=== PATIENT | male | born 1960 | race Caucasian/White ===

== ENCOUNTER 2020-04-23 18:08 | Emergency (ER) | payer MEDICAID, SELFPAY ==
[2020-04-23 18:09] VITALS: BP 152/102; PULSE 88; RESP 16; TEMP 36.4; O2SAT 100; BMI 19.4
--- NOTE | 2020-04-23 18:52 | ED.VIS.GEN ---
History of Present Illness Chief Complaint: Upper Extremity Injury Informant: Patient Narrative: Patient states that about a week and a half ago he was exposed to very cold temperatures. He tells me that for years when he goes out in the cold his fingers hurt. He states they typically will crack. This occurred during the last cold spell and the patient states that over the subsequent days the tips of his fingers particularly the right middle finger right ring and right index finger have started to turn black. He does not feel any sensation in the areas that are black. He notes that the right middle finger is swollen compared to the other fingers. He states his tetanus is up-to-date. He went to urgent care and they advised him to come to emergency. He is a long-term smoker. He states he is never been diagnosed with Raynaud's phenomenon. He denies that his fingers turn white or blue in the cold. Past Medical History - Allergies and Home Meds Allergies/Adverse Reactions: Allergies No Known Allergies Allergy (Verified 04/23/20 18:11) Prior records reviewed: Yes Surgical History: noncontributory Smoking Status: Current every day smoker Drugs: None Review of Systems General: Denies: Chills, Fever, Sweats Eyes: Denies: Visual changes - bilaterally, Diplopia ENT: Denies: Rhinorrhea, Sore throat Cardiovascular: Denies: Chest pain, Palpitations Respiratory: Denies: Dyspnea, Cough, Dyspnea on exertion Gastrointestinal: Denies: Abdominal pain, Nausea, Vomiting, Diarrhea, Melena, Hematochezia Genitourinary: Denies: Dysuria, Hematuria, Frequency Musculoskeletal: Reports: Swelling, Extremity Pain. Denies: Back pain Skin: Denies: Rash, Wounds Neurological: Denies: Headache, Weakness, Numbness Physical Exam Vital Signs/Narrative: Vital Signs Temp Pulse Resp BP Pulse Ox 04/23/20 18:09 97.5 F L 88 16 152/102 H 100 Inital Vital Signs reviewed: Yes General: Well nourished, Well developed, No Acute Distress Head: Normocephalic, Atraumatic Eyes: Perrl, EOMI ENT: Moist mucous membranes, No rhinorrhea Neck: Supple, Nontender Cardiovascular: Regular rate, Regular rhythm, No murmurs Respiratory: No distress, CTA bilaterally, Chest nontender Abdomen: Soft, Nontender, Nondistended, Normal bowel sounds Back: Nontender, Normal Inspection Extremities: Nontender, No edema, - - There are some black spots on the tips of the right ring finger and right index finger. Those digits are not swollen. Skin: No rash, - - The distal tip of the right middle finger is black and woody. There is no sensation. The length of the right middle finger is swollen but without erythema. He has flexion/extension. I do not feel it is tenosynovitis. Neurological: Alert, Oriented x3, Cranial nerves II-XII grossly intact, Normal Strength, Normal Sensation Psychological: Normal affect, Normal Mood Diagnostic/Tx/Re-eval - Medical Decision Making My interpretation of the three-view plain films of the right hand are negative for acute bony abnormalities. I am going to refer the patient to plastic surgery for possible surgical debridement. Given that the right middle finger is swollen and tender I will place him on Keflex. At this point I do not believe he has a tenosynovitis. Patient is comfortable with this plan. ED Disposition - Plan for ED Patient: Disposition: Home or Assisted Living Diagnosis: Frostbite of hand, right Instructions: ED Frostbite Prescriptions: Cephalexin [Keflex] 500 mg PO Q6 #40 cap Prescription Printed Referrals: Nash Lauren MD [STAFF PHYSICIAN] - As soon as possible Clinic,Wound [None] - As soon as possible
--- NOTE | 2020-04-23 18:55 | RAD_ITS ---
STUDY: X-RAY - RIGHT HAND REASON FOR EXAM: Male, 59 years old. PT STATES HAS HAD 3RD, 4TH, AND 5TH FINGERS CRACKED IN THE COLD WEATHER. NOW THEY ARE TURNING BLACK. BEEN GOING ON FOR 2 WEEKS. TECHNIQUE: 3 view(s) of the hand. COMPARISON: None. FINDINGS: Normal radiocarpal articulation. Normal distal radioulnar joint. Normal visualized carpal bones. Normal carpal articulations Normal carpometacarpal articulation of the thumb. Normal second through fifth carpometacarpal joints. Old healed fracture of the fifth metacarpal. Normal metacarpophalangeal joint of the thumb. Normal interphalangeal joint of the thumb. Normal proximal and distal phalanges of the thumb. Normal metacarpophalangeal joints of the second through fifth fingers. Normal proximal and distal interphalangeal joints of the second through fifth fingers. Normal phalanges of the second through fifth fingers. The soft tissue structures are unremarkable. RAD/Hand Min 3 Views IMPRESSION: Old healed fracture of the fifth metacarpal. No acute fracture or other significant bony pathology Electronically Signed: Keyshawn Tapia MD at 19:20 EST , Service support ,
== END 2020-04-23 19:48 | disposition home or self-care (01) ==
PROVIDERS: Emergency Provider Emergency Medicine; PCP Family Medicine
DX: T33.531A Superficial frostbite of right finger(s), initial encounter (principal); F17.200 Nicotine dependence, unspecified, uncomplicated
CPT/HCPCS: 73130; 99282

== ENCOUNTER 2020-12-16 15:42 | Emergency (ER) | payer MEDICAID, SELFPAY ==
[2020-04-26 10:08] VITALS: BMI 19.5
[2020-12-16 15:43] VITALS: BP 140/109; PULSE 113; RESP 15; TEMP 36.3; O2SAT 96; BMI 21.6
--- NOTE | 2020-12-16 15:46 | NURSING ---
NO OLD EKGS
--- NOTE | 2020-12-16 15:51 | EKG12_ITS ---
Test Reason : CP Blood Pressure : / mmHG Vent. Rate : 111 BPM Atrial Rate : 111 BPM P-R Int : 130 ms QRS Dur : 098 ms QT Int : 344 ms P-R-T Axes : 088 -42 112 degrees QTc Int : 467 ms Sinus tachycardia with occasional Premature ventricular complexes Left axis deviation Left ventricular hypertrophy with repolarization abnormality Abnormal ECG Confirmed by ALETHEA NORIEGA, UZIEL ([id number]), editor publications MARCUS GUO ([id number]) on 12/19/2020 1:57:48 PM Referred By: CRISSY/ALIYA Confirmed By:JOEY CLAIRE MD
--- NOTE | 2020-12-16 15:56 | RAD_ITS ---
INDICATION: chest pain EXAMINATION/TECHNIQUE: X-RAY - XR Chest 1 View COMPARISON: None. FINDINGS: 7 mm nodular density in the left mid to lower lung could represent a nipple shadow. Tortuous and calcified thoracic aorta. The heart is mildly enlarged. No pleural effusion or pneumothorax. No acute osseous abnormalities. RAD/Chest 1 View (Portable) IMPRESSION: 7 mm nodular density in the left mid to lower lung could represent a nipple shadow. Recommend repeat radiographs with nipple markers. Otherwise, no acute abnormalities. Electronically Signed: Alexander Anthony MD at 16:28 EDT Tel , Service support ,
--- NOTE | 2020-12-16 15:58 | CT_ITS ---
EXAM: CT ANGIOGRAPHY CHEST WITH INTRAVENOUS CONTRAST CLINICAL INDICATION: Chest pain TECHNIQUE: Helically acquired angiography images were obtained of the chest with intravenous contrast. This CT exam was performed using one or more of the following dose reduction techniques: automated exposure control, adjustment of the mA and/or kV according to patient size, and/or use of iterative reconstruction technique. VetDC report generation technology utilized. MIP reconstructed images were created and reviewed. CONTRAST: IV 100mL Isovue-370 COMPARISON: None. FINDINGS: PULMONARY ARTERIES: Unremarkable. Normal in caliber. No gross evidence of pulmonary embolism. AORTA: Unremarkable. Normal in caliber. No evidence of dissection. GREAT VESSELS OF AORTIC ARCH: Unremarkable. Normal in caliber. No evidence of dissection. LUNGS AND PLEURAL SPACES: Spiculated 2.2 cm mass of the right apex. The appearance suggest malignancy. Hyperexpansion of the lungs consistent with COPD. Bilateral blebs and bulla in both apices. Moderate right pleural effusion. Small left pleural effusion. Prominent compressive atelectasis of both lower lobes. . No pneumothorax. HEART: Moderate to marked cardiomegaly. 3.3 cm filling defect at the apex of the left ventricle, suspicious for intraluminal thrombus. Echocardiogram recommended. No pericardial effusion. No signs of right heart strain. MEDIASTINUM: Unremarkable. Although no gross mediastinal or hilar mass or adenopathy is seen, adenopathy is not completely excluded. Esophagus is unremarkable. No hiatal hernia. THYROID: Unremarkable. No thyroid lesions. BONES/JOINTS: Degenerative changes throughout the skeletal structures. No suspicious lytic or blastic abnormality. IMPRESSION: 1. No evidence for aortic aneurysm or dissection. 2. Bilateral pleural effusions especially on the right. 3. Suspicion of malignant-appearing mass in the right apex. Recommend further evaluation such as PET scan. 4. Moderate to marked cardiomegaly with filling defect in the left ventricle, possible thrombus. Echocardiogram recommended. 5. Underlying COPD. Electronically Signed: Twin Hernandez MD at 17:55 EDT , Service support , EXAM: CT ANGIOGRAPHY ABDOMEN AND PELVIS WITH INTRAVENOUS CONTRAST CLINICAL INDICATION: Chest pain TECHNIQUE: Helically acquired angiography images were obtained of the abdomen and pelvis with intravenous contrast. This CT exam was performed using one or more of the following dose reduction techniques: automated exposure control, adjustment of the mA and/or kV according to patient size, and/or use of iterative reconstruction technique. VetDC report generation technology utilized. MIP reconstructed images were created and reviewed. CONTRAST: IV 100mL Isovue-370 COMPARISON: None. FINDINGS: LIMITATIONS: Markedly limited by very limited intrinsic contrast probably related to generalized edema, along with the arterial phase of imaging. This makes it extremely difficult to differentiate abdominal structures. VASCULATURE: AORTA: Tortuous calcified aorta with no aneurysm or evidence for dissection. CELIAC TRUNK AND MESENTERIC ARTERIES: No acute findings. No occlusion or significant stenosis. No dissection. RENAL ARTERIES: No acute findings. No occlusion or significant stenosis. No dissection. ILIAC ARTERIES: No acute findings. No occlusion or significant stenosis. No dissection. ABDOMEN: LIVER: Unremarkable. Homogeneous. No focal mass. GALLBLADDER AND BILE DUCTS: Unremarkable. No calcified gallstones. No gallbladder distention or wall edema. No intra- or extrahepatic biliary ductal dilation. PANCREAS: Unremarkable. No focal cystic or solid mass. SPLEEN: Unremarkable. Normal size without focal cystic or solid mass. ADRENALS: Unremarkable. No nodules. KIDNEYS AND URETERS: Abnormal appearance of both kidneys with numerous segments of abnormal, absent enhancement. Appearance suggests numerous, possibly chronic, renal infarcts. No hydronephrosis. No definite stones. Probable diffuse edema and moderate ascites in all quadrants of the abdomen and pelvis. Normal renal size and position. STOMACH AND BOWEL: Evaluation of the GI tract is limited by absence of oral contrast. Cannot exclude stomach wall thickening. No dilated loops of bowel or evidence for obstruction. Cannot exclude segmental thickening of the patel of the small or large bowel. Cannot exclude enteritis or colitis. Moderate diffuse fecal retention. PELVIS: APPENDIX: Appendix within normal limits. BLADDER: Unremarkable. REPRODUCTIVE: Unremarkable as visualized. No mass. ABDOMEN and PELVIS: INTRAPERITONEAL SPACE: Mild diffuse ascites and generalized edema. BONES/JOINTS: Degenerative changes throughout the skeletal structures. There is dextroconvex scoliosis of the thoracolumbar spine. No suspicious lytic or blastic abnormality. SOFT TISSUES: See above. LYMPH NODES: Unremarkable. No enlarged lymph nodes. CT/CTA Chst, Abd, Pel W and/or WO IMPRESSION: 1. Tortuous calcified aorta with no aneurysm or dissection. 2. Suboptimal evaluation of the soft tissues of the abdomen and pelvis related to markedly low intrinsic contrast probably related to diffuse edema. 3. Probable numerous small bilateral renal infarcts of indeterminate age. 4. Small amount of diffuse ascites. Electronically Signed: Twin Hernandez MD at 18:02 EDT , Service support ,
--- NOTE | 2020-12-16 15:59 | ED.VIS.CHEST ---
HPI History of Present Illness Chief Complaint: Chest Pain Narrative Narrative: 60-year-old male with history of weak heart, hypertension, tobacco abuse, COPD presenting with chest pain which he states was worse yesterday between his shoulder blades. He states his chest pain has improved but now has left lower extremity numbness and tingling. He has no abdominal pain. He states he was told previously has a pulmonary nodule and some lymph nodes in his chest but he was not diagnosed with cancer. Patient states that currently his right leg hurts worse than his chest. [facility] Medical History Alcohol abuse Back problem Discoloration of skin of finger Frostbite of finger of right hand High blood pressure Skin necrosis Vitamin deficiency Home Medications cholecalciferol (vitamin D3) 25 mcg (1,000 unit) chewable tablet 25 mcg PO DAILY 04/26/20 [History Last Taken Unknown] ibuprofen 600 mg tablet 600 mg PO TID PRN #30 tab 04/26/20 [Rx Last Taken Unknown] omeprazole 20 mg tablet,delayed release 20 mg PO DAILY 04/26/20 [History Last Taken Unknown] prednisone 2.5 mg tablet 2.5 mg PO BID 04/26/20 [History Last Taken Unknown] albuterol sulfate 1 - 2 puff INHALATION Q4H PRN PRN 12/16/20 [History Last Taken Unknown] carvedilol 6.25 mg PO BID 12/16/20 [History Last Taken Unknown] lisinopril 10 mg PO DAILY 12/16/20 [History Last Taken Unknown] Allergy/AdvReac Type Severity Reaction Status Date / Time No Known Allergies Allergy Verified 12/16/20 15:43 Family History Father Asthma Heart disease Mother Kidney disease Surgical History History of fusion of cervical spine Social History Smoking Status: Current some day smoker tobacco type: cigarettes counseling given: provider counseling and counseling >10 minutes alcohol intake: current substance use type: does not use additional social history: DOES TAKE ASPIRIN NEEDED DOES TAKE IBUPROFEN NEEDED ROS ROS ED Constitutional Constitutional ED: Denies chills, fever(s) or sweats Eyes Eyes: Denies blurry vision or change in vision ENT ENT ED: Denies rhinorrhea or sore throat Cardiovascular Cardiovascular: Reports chest pain and racing heartbeat Respiratory/Chest Respiratory/Chest: Denies cough, dyspnea or sputum Gastrointestinal Gastrointestinal: Denies abdominal pain, nausea or vomiting Genitourinary Genitourinary ED: Denies dysuria or hematuria Musculoskeletal Musculoskeletal: Reports back pain and neck pain Integumentary Denies abscess or rash Neurologic Neurologic: Denies headache(s) or paresthesias Psychiatric Psychiatric: Denies anxiety or depression EXAM Physical Exam Const Vital Signs: 12/16/20 15:43 12/16/20 15:50 12/16/20 15:51 Temperature 97.4 F L Temperature Source Temporal Pulse Rate 113 H Respiratory Rate 15 Respiratory Effort Normal Non-Labored Blood Pressure 140/109 H Blood Pressure Mean 119 Pulse Ox 96 Oxygen Delivery Method Room Air Nasal Cannula Oxygen Flow Rate (L/min) 2 12/16/20 17:43 12/16/20 19:00 12/16/20 21:22 Temperature Temperature Source Pulse Rate 107 H 108 H 108 H Respiratory Rate 16 16 14 Respiratory Effort Blood Pressure 109/91 H 144/129 H 140/125 H Blood Pressure Mean 97 134 130 Pulse Ox 99 97 Oxygen Delivery Method Room Air Room Air Nasal Cannula Oxygen Flow Rate (L/min) 2 Positive cachectic General Appearance ED: cachectic and NAD; Negative for pallor Nutritional Appearance: cachectic HEENT Reports moist mucous membranes normocephalic and atraumatic Eyes PERRL and EOMs intact bilaterally Chest Wall inspection of chest normal and palpation of chest normal Resp normal respiratory effort and clear to auscultation bilaterally Effort and Inspection: respiratory distress Auscultation: Negative for rales, rhonchi or wheezes Cardio regular rhythm Rate: tachycardic GI normal to inspection, nondistended, normoactive bowel sounds Extremity General Extremety ED: Yes edema and tenderness General Extremity: edema Neuro oriented x3 and CN's II-XII intact bilaterally Sensorium / Orientation: awake and alert Skin no rashes or lesions noted General Skin Exam: Negative for jaundice or pallor Heart Score History: Moderately Suspicious ECG: Nonspecific Repolarization Age: >45 - <65 years Risk Factors: 1 or 2 Risk Factors Troponin: >/=3 x Normal Limit Score: 6 MDM MDM MDM Narrative Medical decision making narrative: Patient presenting with improving chest pain however he is complaining of right lower extremity paresthesias and pain. He does have a faint palpable pulse and a dopplerable pulse of the DP. Patient has no cords palpated and his compartments are soft on the right lower extremity. CBC shows white blood cell count 8.5, hemoglobin 13.4, hematocrit 41.0, platelets 162. Creatinine is 1.40 with no comparison. Electrolytes are normal. High-sensitivity troponin came back at 10,000 842 and a 2-hour troponin came back at fourteen 723.9. Chest x-ray on my interpretation shows a small 7 mm nodule in the left midlung without any other acute cardiopulmonary process the radiologist does agree given patient's pain pattern I did obtain CTA chest abdomen pelvis which does not identify any PE or dissection but does identify bilateral pleural effusions, innumerable age-indeterminate infarcts of the bilateral kidneys, small diffuse ascites, suspicion of malignant-appearing mass in the right apex. Patient has already had a PET scan showing a suspicious mass. CTA also identifies moderate to marked cardiomegaly with filling defect in the left ventricle, possible thrombus. Given the patient's lower extremity pain on the right I do suspect that patient probably threw a clot downstream into his right lower extremity. I discussed this with Dr. Lubin and he stated that he would definitely start a heparin drip but he did not feel that the patient was amenable to staying at [facility] given the thrombus both in the leg and in the left ventricle. Patient was treated multiple times with fentanyl. Again his heart enzymes at 2 hours did increase. I discussed the patient with [facility] who accepted transfer. Patient's vital signs remained stable while he was here. His prehospital EKG showed some ST depressions and inversions in V5, V6. I have no previous EKG to compare this to on my interpretation. In hospital EKG shows a sinus tachycardia at with a ventricular rate of [address] inversions and depressions in the lateral leads although they do appear to be improved. This is on my interpretation. Given patient has criteria for NSTEMI, intracardiac thrombus, possible arterial thrombus in the right lower extremity patient was transferred to [facility]. Impression: 1. NSTEMI 2. Abnormal EKG 3. Right leg pain likely arterial thrombus 4. Ascites 5. Right long apical malignancy 6. Bilateral renal infarcts 7. Bilateral pleural effusions Lab Data Attestation: I reviewed the patient's lab results. Labs: Laboratory Results - last 24 hr 12/16/20 12/16/20 12/16/20 15:55 15:55 18:01 WBC 8.5 RBC 4.39 L Hgb 13.4 Hct 41.0 MCV 93.4 MCH 30.5 MCHC 32.7 RDW Std Deviation 53.6 H RDW Coeff of Dariel 15.8 H Plt Count 162 MPV 11.7 Immature Gran % (Auto) 0.500 Neut % (Auto) 68.8 Lymph % (Auto) 21.2 Hudson % (Auto) 8.4 Eos % (Auto) 0.6 Baso % (Auto) 0.5 Absolute Neuts (auto) 5.9 Absolute Lymphs (auto) 1.81 Nucleated RBC % 0 PT INR APTT Sodium 137 Potassium 4.7 Chloride 108 H Carbon Dioxide 19.0 L Anion Gap 10 BUN 28 H Creatinine 1.40 H Estim Creat Clear Calc 51.01 Est GFR (MDRD) Af Amer 67 Est GFR (MDRD) Non-Af 55 L BUN/Creatinine Ratio 20.0 Glucose 106 Calcium 8.8 Troponin I High Sens 37570.9 H* 13206.9 H* 12/16/20 18:31 WBC RBC Hgb Hct MCV MCH MCHC RDW Std Deviation RDW Coeff of Dariel Plt Count MPV Immature Gran % (Auto) Neut % (Auto) Lymph % (Auto) Hudson % (Auto) Eos % (Auto) Baso % (Auto) Absolute Neuts (auto) Absolute Lymphs (auto) Nucleated RBC % PT 16.7 H INR 1.4 APTT 29.9 Sodium Potassium Chloride Carbon Dioxide Anion Gap BUN Creatinine Estim Creat Clear Calc Est GFR (MDRD) Af Amer Est GFR (MDRD) Non-Af BUN/Creatinine Ratio Glucose Calcium Troponin I High Sens Radiography Diagnostic Testing: Radiology Impression Chest X-Ray 12/16/20 15:56 IMPRESSION: 7 mm nodular density in the left mid to lower lung could represent a nipple shadow. Recommend repeat radiographs with nipple markers. Otherwise, no acute abnormalities. Electronically Signed: Alexander Anthony MD at 16:28 EDT Tel , Service support , Chest/Abdomen/Pelvis CTA 12/16/20 15:58 IMPRESSION: 1. Tortuous calcified aorta with no aneurysm or dissection. 2. Suboptimal evaluation of the soft tissues of the abdomen and pelvis related to markedly low intrinsic contrast probably related to diffuse edema. 3. Probable numerous small bilateral renal infarcts of indeterminate age. 4. Small amount of diffuse ascites. Electronically Signed: Twin Hernandez MD at 18:02 EDT , Service support , Discharge Plan Triage Chief Complaint: Chest Pain ED Provider: Lazaro Bryant Dx/Rx/DC Orders Prescriptions: No Action prednisone 2.5 mg tablet 2.5 mg PO BID RF: 0 omeprazole 20 mg tablet,delayed release (DR/EC) 20 mg PO DAILY RF: 0 cholecalciferol (vitamin D3) [Vitamin D3] 25 mcg (1,000 unit) tablet,chewable 25 mcg PO DAILY RF: 0 ibuprofen 600 mg tablet 600 mg PO TID PRN (Reason: pain) Qty: 30 RF: 0 carvedilol 6.25 mg tablet 6.25 mg PO BID RF: 0 lisinopril 10 mg tablet 10 mg PO DAILY RF: 0 albuterol sulfate 90 mcg/actuation HFA aerosol inhaler 1 - 2 puff INHALATION Q4H PRN PRN (Reason: Shortness Of Breath) RF: 0 Primary Care Provider: Hood Ballesteros Referrals: Hood Ballesteros DO [Primary Care Provider] - Disposition Disposition: Acute Care Hospital Discharge Location: [facility] Discharge Date/Time: 12/16/20 21:41
[2020-12-16] MEDS: Ondansetron 4 MG/2 ML Vial IV (16:19)
[2020-12-16] MEDS: Morphine 4 MG/ML Syringe IV (16:19)
[2020-12-16 16:24] LABS: Absolute Lymphocyte Count 1.81 X10^3/uL (0.83-4.51); Absolute Neutrophil Count 5.9 X10^3/uL (2.0-7.7); Basophil# 0.04 X10^3/uL; Basophil% 0.5 % (0-1); Eosinophil# 0.05 X10^3/uL; Eosinophils% 0.6 % (0-5); Hemoglobin 13.4 g/dL (13.0-16.5); Lymphocyte # 1.81 X10^3/ul (0.83-4.51); Lymphocyte % 21.2 % (19-41); Mean Corp Hgb Conc 32.7 g/dL (32-36); Mean Corpuscular Hgb 30.5 pg (27.0-32.0); Mean Corpuscular Volume 93.4 fL (80-94); Mean Platelet Vol. 11.7 fl (6.2-12.0); Monocyte# 0.72 X10^3/uL; Monocyte% 8.4 % (0-10); NRBC Flagged by Analyzer 0 % (0-5); Neutrophil # 5.88 X10^3/uL (2.7-7.7); Neutrophil % 68.8 % (47-70); Platelet Count 162 K/mm3 (150-450); RBC Distribution Width CV 15.8 % (11.6-14.6); RBC Distribution Width SD 53.6 fl (35.1-43.9); Red Blood Count 4.39 M/mm3 (4.6-6.2); White Blood Count 8.5 K/mm3 (4.4-11.0)
[2020-12-16 16:49] LABS: Anion Gap 10 (5-15); BUN 28 mg/dL (7-18); Calcium,Total 8.8 mg/dL (8.5-10.1); Chloride 108 mmol/L (98-107); EST Glomerular Filtration Rate 55 mL/min (>60); Est Glom Filt Rate - Afr Amer 67 mL/min (>60); Estimated Creatinine Clearance 51.01 ml/min; Glucose 106 mg/dL (74-106); Potassium 4.7 mmol/L (3.5-5.1); Sodium Level 137 mmol/L (136-145)
[2020-12-16 17:43] VITALS: BP 109/91; PULSE 107; RESP 16; O2SAT 99
[2020-12-16] MEDS: fentaNYL 100 MCG/2 ML Ampul 50 MCG IV ×3 (17:53→21:07)
[2020-12-16] MEDS: TICAGRELOR 90 MG TABLET 180 MG PO (18:36)
[2020-12-16] MEDS: Heparin Injection (Vial) 5,000 UNIT/ML VIAL 4000 UNIT IV (18:40)
[2020-12-16] MEDS: HEPARIN/D5w 25,000 UNITS 25,000 UNITS/250 ML IV.SOLN. 8 UNITS IV (18:41)
[2020-12-16 18:49] LABS: International Normalized Ratio 1.4; Prothrombin Time (Protime)PT. 16.7 SECONDS (11.7-14.9)
[2020-12-16 18:50] LABS: Partial Thromboplast Time 29.9 Seconds (24.1-36.2)
[2020-12-16 19:00] VITALS: BP 144/129; PULSE 108; RESP 16; O2SAT 97
--- NOTE | 2020-12-16 20:25 | NURSING ---
ACCEPTED TO [facility] SAID NO REPORT WAS NEEDED TO THE ER
[2020-12-16 21:22] VITALS: BP 140/125; PULSE 108; RESP 14
== END 2020-12-16 21:41 | disposition short-term general hospital (02) ==
LOC: ED 16:10
PROVIDERS: Emergency Provider Student in an Organized Health Care Education/Training Program; PCP Family Medicine
DX: I21.4 Non-ST elevation (NSTEMI) myocardial infarction (principal); M79.604 Pain in right leg; R18.8 Other ascites; N28.0 Ischemia and infarction of kidney; J90 Pleural effusion, not elsewhere classified; R91.1 Solitary pulmonary nodule; F17.210 Nicotine dependence, cigarettes, uncomplicated; I10 Essential (primary) hypertension; J44.9 Chronic obstructive pulmonary disease, unspecified; Z79.51 Long term (current) use of inhaled steroids; Z79.899 Other long term (current) drug therapy
CPT/HCPCS: 71045; 71275; 74174; 80048; 84484; 85025; 85610; 85730; 93005; 96365; 96366; 96375; 96376; 99285; Q9967; A4216; J2405

== ENCOUNTER 2021-03-28 16:57 | Emergency (ER) | payer MEDICAID, SELFPAY ==
[2021-03-28 16:58] VITALS: BP 116/102; PULSE 99; RESP 24; TEMP 36.9; BMI 18.2
[2021-03-28 17:15] VITALS: PULSE 99; RESP 22; O2SAT 100
--- NOTE | 2021-03-28 17:23 | EKG12_ITS ---
Test Reason : SOB Blood Pressure : / mmHG Vent. Rate : 094 BPM Atrial Rate : 094 BPM P-R Int : 142 ms QRS Dur : 098 ms QT Int : 390 ms P-R-T Axes : 070 -46 110 degrees QTc Int : 487 ms Sinus rhythm with Premature atrial complexes Left anterior fascicular block ST & T wave abnormality, consider lateral ischemia Prolonged QT Abnormal ECG Confirmed by ALETHEA NORIEGA, UZIEL ([id number]), dictionary editor MARCUS GUO ([id number]) on 03/29/2021 1:59:24 P M Referred By: SOFÍA Confirmed By:JOEY CLAIRE MD
[2021-03-28] MEDS: Ipratropium/Albuterol Sulfate 3 ML AMPUL.NEB INHALATION (17:31)
[2021-03-28] MEDS: Albuterol 2.5 MG/3 ML VIAL.NEB. INHALATION (17:31)
[2021-03-28 17:33] VITALS: PULSE 98; RESP 24
[2021-03-28] MEDS: MethylPREDNISolone 125 MG/2 ML Vial IV (17:46)
--- NOTE | 2021-03-28 17:57 | RAD_ITS ---
STUDY: X-RAY CHEST REASON FOR EXAM: Male, 60 years old. CHEST PAIN cough TECHNIQUE: XR Chest 1 View COMPARISON: 8.8.21 FINDINGS: There is no demonstrated pleural abnormality. Right upper lobe mass. There is borderline cardiomegaly. Normal mediastinum and jerrell. Normal visualized pulmonary arteries. Normal visualized aortic arch and descending thoracic aorta. Normal visualized thoracic spine. Normal visualized ribs, clavicles, and shoulders. There is no demonstrated abnormality of the visualized soft tissue structures of the upper abdomen. RAD/Chest 1 View (Portable) IMPRESSION: Right upper lobe mass. This is stable. Electronically Signed: Rosalino Brewer MD at 18:09 EST , Service support ,
[2021-03-28 18:44] VITALS: BP 129/102; PULSE 97; RESP 18; O2SAT 98
[2021-03-28 19:04] LABS: International Normalized Ratio 3.5
[2021-03-28 19:09] LABS: Absolute Lymphocyte Count 1.35 X10^3/uL (0.83-4.51); Absolute Neutrophil Count 6.1 X10^3/uL (2.0-7.7); Anion Gap 7 (5-15); BUN 24 mg/dL (7-18); BUN/Creat Ratio 24.7 RATIO (10-20); Basophil# 0.02 X10^3/uL; Basophil% 0.2 % (0-1); Calcium,Total 9.2 mg/dL (8.5-10.1); Chloride 107 mmol/L (98-107); Creatinine, Serum 0.97 mg/dL (0.70-1.30); Differential Indicated SCAN CRITERIA MET; EST Glomerular Filtration Rate 84 mL/min (>60); Eosinophil# 0.06 X10^3/uL; Eosinophils% 0.7 % (0-5); Est Glom Filt Rate - Afr Amer 102 mL/min (>60); Estimated Creatinine Clearance 63.91 ml/min; Glucose 95 mg/dL (74-106); Hematocrit 39.9 % (40-54); Hemoglobin 12.7 g/dL (13.0-16.5); Lymphocyte # 1.35 X10^3/ul (0.83-4.51); Lymphocyte % 16.2 % (19-41); Magnesium 1.8 mg/dL (1.6-2.6); Mean Corp Hgb Conc 31.8 g/dL (32-36); Mean Corpuscular Hgb 30.5 pg (27.0-32.0); Mean Corpuscular Volume 95.9 fL (80-94); Monocyte# 0.83 X10^3/uL; Monocyte% 9.9 % (0-10); NRBC Flagged by Analyzer 0.4 % (0-5); Neutrophil # 6.05 X10^3/uL (2.7-7.7); Neutrophil % 72.5 % (47-70); POSITIVE MORPHOLOGY YES; Platelet Count 196 K/mm3 (150-450); Potassium 4.1 mmol/L (3.5-5.1); RBC Distribution Width CV 19.8 % (11.6-14.6); RBC Distribution Width SD 68.2 fl (35.1-43.9); Red Blood Count 4.16 M/mm3 (4.6-6.2); Sodium Level 137 mmol/L (136-145); Troponin-I HS 61 pg/mL (3.0-78.0); White Blood Count 8.4 K/mm3 (4.4-11.0)
[2021-03-28 19:20] VITALS: BP 103/90; PULSE 105; RESP 26; TEMP 36.2; O2SAT 97
[2021-03-28 19:40] LABS: Anisocytosis 2+; Macrocytosis 1+; Microcytosis 1+
--- NOTE | 2021-03-28 20:15 | EDS_ITS ---
HPI History of Present Illness Chief Complaint: Shortness of Breath Narrative Narrative: Patient is a 60-year-old male with past medical history of smoking who was recently diagnosed with lung cancer. He states he has had 5 days of radiation. He states that he has had some increased wheezing shortness of breath and does have nebulizer treatments at home and was recently started on steroid. He denies any chest pain associated with this and states he is currently on Coumadin. He reports that despite using the medications of shortness of breath seems to be persistent and secondary to this comes in for evaluation [facility] Medical History Alcohol abuse Back problem Discoloration of skin of finger Frostbite of finger of right hand High blood pressure Lung cancer Skin necrosis Vitamin deficiency Home Medications cholecalciferol (vitamin D3) 25 mcg (1,000 unit) chewable tablet 25 mcg PO DAILY 04/26/20 [History Last Taken Unknown] ibuprofen 600 mg tablet 600 mg PO TID PRN #30 tab 04/26/20 [Rx Last Taken Unknown] omeprazole 20 mg tablet,delayed release 20 mg PO DAILY 04/26/20 [History Last Taken Unknown] prednisone 2.5 mg tablet 2.5 mg PO BID 04/26/20 [History Last Taken Unknown] albuterol sulfate 1 - 2 puff INHALATION Q4H PRN PRN 12/16/20 [History Last Taken Unknown] carvedilol 6.25 mg PO BID 12/16/20 [History Last Taken Unknown] lisinopril 10 mg PO DAILY 12/16/20 [History Last Taken Unknown] Allergy/AdvReac Type Severity Reaction Status Date / Time No Known Allergies Allergy Verified 03/28/21 17:00 Family History Father Asthma Heart disease Mother Kidney disease Surgical History History of fusion of cervical spine Social History Smoking Status: Current some day smoker tobacco type: cigarettes counseling given: provider counseling and counseling >10 minutes alcohol intake: current substance use type: does not use additional social history: DOES TAKE ASPIRIN NEEDED DOES TAKE IBUPROFEN NEEDED ROS ROS ED Constitutional Constitutional ED: Denies chills or fever(s) ENT ENT ED: Denies sore throat Cardiovascular Cardiovascular: Denies chest pain Respiratory/Chest Respiratory/Chest: Reports cough and dyspnea Gastrointestinal Gastrointestinal: Denies abdominal pain, diarrhea, nausea or vomiting Genitourinary Genitourinary ED: Denies dysuria Musculoskeletal Musculoskeletal: Denies myalgias Integumentary Denies rash Neurologic Neurologic: Denies headache(s) Hematologic/Lymphatic Hematologic/Lymphatic: Reports easy bleeding and easy bruising EXAM Physical Exam Const Vital Signs: 03/28/21 16:58 03/28/21 17:15 03/28/21 17:17 Temperature 98.4 F Temperature Source Temporal Pulse Rate 99 99 Respiratory Rate 24 H 22 H Respiratory Effort Short of Breath Labored Respiratory Pattern Tachypnea Blood Pressure 116/102 H Blood Pressure Mean 106 Pulse Ox 100 Oxygen Delivery Method Room Air 03/28/21 17:33 03/28/21 18:44 03/28/21 19:20 Temperature 97.2 F L Temperature Source Temporal Pulse Rate 98 97 105 H Respiratory Rate 24 H 18 26 H Respiratory Effort Respiratory Pattern Tachypnea Blood Pressure 129/102 H 103/90 H Blood Pressure Mean 111 94 Pulse Ox 98 97 Oxygen Delivery Method Room Air Room Air Positive well nourished and well developed General Appearance ED: well developed HEENT Reports moist mucous membranes HEENT Narrative: No tongue or lip swelling no oral lesions no airway edema or compromise Eyes PERRL and EOMs intact bilaterally Neck supple and no JVD Resp normal respiratory effort Resp Narrative: Breath sounds are diminished throughout with diffuse inspiratory and expiratory wheezes however no signs of respiratory distress Cardio regular rhythm Rate: tachycardic and other Other Details: Tachycardic rate with regular rhythm. Radial pulses are +2-4 bilaterally they are equal and symmetric GI normal to inspection, nondistended, normoactive bowel sounds, non-tender, non- distended and no masses GI Narrative: No voluntary guarding or rigidity no pulsatile mass Auscultation: normoactive bowel sounds Palpation: soft Extremity normal to inspection Extremity Narrative: No asymmetric edema no pitting edema negative Homans' sign bilaterally Neuro oriented x3 and CN's II-XII intact bilaterally Sensorium / Orientation: alert Motor Exam: strength 5/5 throughout Psych mental status grossly normal Skin no rashes or lesions noted MDM MDM MDM Narrative Medical decision making narrative: Patient presented to the ER slightly tachyca rdic but otherwise was satting in the high 90s on room air. We discussed possible CT of his chest because of his known lung cancer and his report of shortness of breath and mildly fast heart rate. However he is currently on Coumadin and therefore chance for pulmonary embolus is low especially since his level was therapeutic at 3.5. He also did not have any chest pain and therefore did not want a CT at this visit. Chest x-ray was obtained which showed a lung mass but this is stable and consistent with his history of cancer without secondary pneumothorax pleural effusion or pneumonia. Blood work revealed a stable H&H without neutropenia. He was given IV steroids as well as breathing treatments and on reevaluation reports feeling somewhat better. He remains in no acute respiratory distress. Therefore at this time as patient is not requiring supplemental oxygen and does not have secondary infection changes based on his x-ray or laboratory studies I do not feel it is worthwhile to keep him in the hospital at this time especially with his immunosuppressed state and he can be discharged home and continue his medications. Lab Data Attestation: I reviewed the patient's lab results. Labs: Laboratory Results - last 24 hr 03/28/21 03/28/21 03/28/21 17:50 17:50 17:50 WBC Cancelled Corrected WBC Cancelled RBC Cancelled Hgb Cancelled Hct Cancelled MCV Cancelled MCH Cancelled MCHC Cancelled RDW Std Deviation Cancelled RDW Coeff of Dariel Cancelled Plt Count Cancelled MPV Cancelled Immature Gran % (Auto) Cancelled Neut % (Auto) Cancelled Lymph % (Auto) Cancelled [place] % (Auto) Cancelled Eos % (Auto) Cancelled Baso % (Auto) Cancelled Absolute Neuts (auto) Cancelled Absolute Lymphs (auto) Cancelled Total Counted Cancelled Neutrophils % (Manual) Cancelled Band Neutrophils % Cancelled Lymphocytes % (Manual) Cancelled Monocytes % (Manual) Cancelled Eosinophils % (Manual) Cancelled Basophils % (Manual) Cancelled Metamyelocytes % Cancelled Myelocytes % Cancelled Promyelocytes % Cancelled Blast Cells % Cancelled Plasma Cell % (Manual) Cancelled Other Cells % Cancelled Nucleated RBC % Cancelled Nucleated RBCs/100 WBC Cancelled Differential Comment Cancelled Diff Path Review Cancelled Hypersegmented Neuts Cancelled Atypical Lymphocytes Cancelled Reactive Lymphocytes Cancelled Smudge Cells Cancelled Toxic Granulation Cancelled Toxic Vacuolation Cancelled Dohle Bodies Cancelled Sonali Rods Cancelled Platelet Estimate Cancelled Plt Morphology Comment Cancelled RBC Morphology Cancelled Polychromasia Cancelled Hypochromasia Cancelled Poikilocytosis Cancelled Basophilic Stippling Cancelled Anisocytosis Cancelled Microcytosis Cancelled Macrocytosis Cancelled Spherocytes Cancelled Sickle Cells Cancelled Target Cells Cancelled Tear Drop Cells Cancelled Ovalocytes Cancelled Stomatocytes Cancelled [place] Bodies Cancelled [place] Cells Cancelled Bite Cells Cancelled Crenated Cell Cancelled Acanthocytes (Spur) Cancelled Rouleaux Cancelled Schistocytes Cancelled PT Cancelled INR Cancelled Sodium Cancelled Potassium Cancelled Chloride Cancelled Carbon Dioxide Cancelled Anion Gap Cancelled BUN Cancelled Creatinine Cancelled Estim Creat Clear Calc Cancelled Est GFR (MDRD) Af Amer Cancelled Est GFR (MDRD) Non-Af Cancelled BUN/Creatinine Ratio Cancelled Glucose Cancelled Calcium Cancelled Magnesium Cancelled Troponin I High Sens Cancelled B-Natriuretic Peptide 03/28/21 03/28/21 03/28/21 17:50 18:40 18:40 WBC 8.4 Corrected WBC RBC 4.16 L Hgb 12.7 L Hct 39.9 L MCV 95.9 H MCH 30.5 MCHC 31.8 L RDW Std Deviation 68.2 H RDW Coeff of Dariel 19.8 H Plt Count 196 MPV 12.0 Immature Gran % (Auto) 0.500 Neut % (Auto) 72.5 H Lymph % (Auto) 16.2 L [place] % (Auto) 9.9 Eos % (Auto) 0.7 Baso % (Auto) 0.2 Absolute Neuts (auto) 6.1 Absolute Lymphs (auto) 1.35 Total Counted Neutrophils % (Manual) Band Neutrophils % Lymphocytes % (Manual) Monocytes % (Manual) Eosinophils % (Manual) Basophils % (Manual) Metamyelocytes % Myelocytes % Promyelocytes % Blast Cells % Plasma Cell % (Manual) Other Cells % Nucleated RBC % 0.4 Nucleated RBCs/100 WBC Differential Comment Diff Path Review Hypersegmented Neuts Atypical Lymphocytes Reactive Lymphocytes Smudge Cells Toxic Granulation Toxic Vacuolation Dohle Bodies Sonali Rods Platelet Estimate Plt Morphology Comment RBC Morphology Polychromasia Hypochromasia Poikilocytosis Basophilic Stippling Anisocytosis 2+ Microcytosis 1+ Macrocytosis 1+ Spherocytes Sickle Cells Target Cells Tear Drop Cells Ovalocytes Stomatocytes [place] Bodies [place] Cells Bite Cells Crenated Cell Acanthocytes (Spur) Rouleaux Schistocytes PT 34.0 H INR 3.5 Sodium Potassium Chloride Carbon Dioxide Anion Gap BUN Creatinine Estim Creat Clear Calc Est GFR (MDRD) Af Amer Est GFR (MDRD) Non-Af BUN/Creatinine Ratio Glucose Calcium Magnesium Troponin I High Sens B-Natriuretic Peptide Cancelled 03/28/21 18:40 WBC Corrected WBC RBC Hgb Hct MCV MCH MCHC RDW Std Deviation RDW Coeff of Dariel Plt Count MPV Immature Gran % (Auto) Neut % (Auto) Lymph % (Auto) [place] % (Auto) Eos % (Auto) Baso % (Auto) Absolute Neuts (auto) Absolute Lymphs (auto) Total Counted Neutrophils % (Manual) Band Neutrophils % Lymphocytes % (Manual) Monocytes % (Manual) Eosinophils % (Manual) Basophils % (Manual) Metamyelocytes % Myelocytes % Promyelocytes % Blast Cells % Plasma Cell % (Manual) Other Cells % Nucleated RBC % Nucleated RBCs/100 WBC Differential Comment Diff Path Review Hypersegmented Neuts Atypical Lymphocytes Reactive Lymphocytes Smudge Cells Toxic Granulation Toxic Vacuolation Dohle Bodies Sonali Rods Platelet Estimate Plt Morphology Comment RBC Morphology Polychromasia Hypochromasia Poikilocytosis Basophilic Stippling Anisocytosis Microcytosis Macrocytosis Spherocytes Sickle Cells Target Cells Tear Drop Cells Ovalocytes Stomatocytes [place] Bodies [place] Cells Bite Cells Crenated Cell Acanthocytes (Spur) Rouleaux Schistocytes PT INR Sodium 137 Potassium 4.1 Chloride 107 Carbon Dioxide 23.0 Anion Gap 7 BUN 24 H Creatinine 0.97 Estim Creat Clear Calc 63.91 Est GFR (MDRD) Af Amer 102 Est GFR (MDRD) Non-Af 84 BUN/Creatinine Ratio 24.7 H Glucose 95 Calcium 9.2 Magnesium 1.8 Troponin I High Sens 61 B-Natriuretic Peptide Radiography Diagnostic Testing: Clinical Impression(s) from Imaging Studies Chest X-Ray 03/28/21 17:57 IMPRESSION: Right upper lobe mass. This is stable. Electronically Signed: Rosalino Brewer MD at 18:09 EST , Service support , Discharge Plan Triage Chief Complaint: Shortness of Breath ED Provider: Abdoul Harvey Dx/Rx/DC Orders Clinical Impression: Lung cancer, Dyspnea Instructions: Cancer Lung Dc, ED Dyspnea Prescriptions: No Action prednisone 2.5 mg tablet 2.5 mg PO BID RF: 0 omeprazole 20 mg tablet,delayed release (DR/EC) 20 mg PO DAILY RF: 0 cholecalciferol (vitamin D3) [Vitamin D3] 25 mcg (1,000 unit) tablet,chewable 25 mcg PO DAILY RF: 0 ibuprofen 600 mg tablet 600 mg PO TID PRN (Reason: pain) Qty: 30 RF: 0 carvedilol 6.25 mg tablet 6.25 mg PO BID RF: 0 lisinopril 10 mg tablet 10 mg PO DAILY RF: 0 albuterol sulfate 90 mcg/actuation HFA aerosol inhaler 1 - 2 puff INHALATION Q4H PRN PRN (Reason: Shortness Of Breath) RF: 0 Primary Care Provider: Hood Ballesteros Referrals: Hood Ballesteros DO [Primary Care Provider] - Activity Restrictions/Additional Instructions: Please continue your home nebulizers and steroids that were prescribed previously and return to the hospital should you have any further concerns Disposition Disposition: Home, Self Care
[2021-03-28 20:16] LABS: BNP,B-Type NATRIURETIC PEPTIDE > 5000.0 pg/mL (0-100)
[2021-03-28 20:43] VITALS: BP 124/98; PULSE 107; RESP 24; O2SAT 96
--- NOTE | 2021-03-28 20:56 | ED.RN ---
spoke with Dr. Harvey about elevated BNP. MD is not concerned for pt to need treatment for BNP level. no CHF shown on xray and no leg swelling or jugular vein distention. RN voiced concern about pt's SOB but stated he feels its more related to his lung cancer diagnosis. stated BNP may be elevated from recent MO. RN mentioned ordering PO lasix and does not feel this needs to be a treatment. RN thanked for his explanation.
== END 2021-03-28 20:59 | disposition home or self-care (01) ==
PROVIDERS: Emergency Provider Emergency Medicine; PCP Family Medicine
DX: R06.02 Shortness of breath (principal); C34.90 Malignant neoplasm of unspecified part of unspecified bronchus or lung; I10 Essential (primary) hypertension; F17.210 Nicotine dependence, cigarettes, uncomplicated; Z79.899 Other long term (current) drug therapy
CPT/HCPCS: 71045; 80048; 83735; 83880; 84484; 85025; 85610; 87426; 93005; 94640; 96374; 99285; A4216

== ENCOUNTER 2021-06-30 18:37 | Emergency (ER) | payer MEDICAID, SELFPAY ==
[2021-06-30 18:38] VITALS: BP 129/89; PULSE 106; RESP 15; TEMP 36.3; O2SAT 98; BMI 18.2
--- NOTE | 2021-06-30 19:39 | EDS_ITS ---
HPI History of Present Illness Chief Complaint: Lower Extremity Injury Informant: patient Onset/Context/Timing Onset: Days Current Severity: Moderate Maximum Severity: Moderate Narrative Narrative: Patient presents complaining of increased right foot pain over the past several days. He has a history of poor circulation and reports having a thrombectomy in September of last year at [facility]. He is currently on Coumadin. Patient states he has had wounds on his fingertips as well as a few on his right foot. Foot has become more painful over the past several days. [facility] Medical History Alcohol abuse Back problem Discoloration of skin of finger Frostbite of finger of right hand High blood pressure Lung cancer Skin necrosis Vitamin deficiency Home Medications cholecalciferol (vitamin D3) 25 mcg (1,000 unit) chewable tablet 25 mcg PO DAILY 04/26/20 [History Last Taken Unknown] ibuprofen 600 mg tablet 600 mg PO TID PRN #30 tab 04/26/20 [Rx Last Taken Unknown] omeprazole 20 mg tablet,delayed release 20 mg PO DAILY 04/26/20 [History Last Taken Unknown] prednisone 2.5 mg tablet 2.5 mg PO BID 04/26/20 [History Last Taken Unknown] albuterol sulfate 1 - 2 puff INHALATION Q4H PRN PRN 12/16/20 [History Last Taken Unknown] carvedilol 6.25 mg PO BID 12/16/20 [History Last Taken Unknown] lisinopril 10 mg PO DAILY 12/16/20 [History Last Taken Unknown] Allergy/AdvReac Type Severity Reaction Status Date / Time No Known Allergies Allergy Verified 06/30/21 18:38 Family History Father Asthma Heart disease Mother Kidney disease Surgical History History of fusion of cervical spine Social History Smoking Status: Current every day smoker tobacco type: cigarettes counseling given: provider counseling and counseling >10 minutes alcohol intake: current substance use type: does not use additional social history: DOES TAKE ASPIRIN NEEDED DOES TAKE IBUPROFEN NEEDED ROS ROS ED Constitutional Constitutional ED: Denies chills or fever(s) Eyes Eyes: Denies change in vision ENT ENT ED: Denies sore throat Cardiovascular Cardiovascular: Denies chest pain Respiratory/Chest Respiratory/Chest: Denies cough or dyspnea Gastrointestinal Gastrointestinal: Denies abdominal pain, diarrhea, nausea or vomiting Genitourinary Genitourinary ED: Denies dysuria Musculoskeletal Musculoskeletal: Reports arthralgias; Denies back pain Integumentary Reports other Details: Scabbed wounds to fingers and right foot Neurologic Neurologic: Denies headache(s) or weakness Allergic/Immunologic Allergic/Immunologic ED: Denies urticaria EXAM Physical Exam Const Vital Signs: 06/30/21 18:38 06/30/21 19:56 06/30/21 20:45 Temperature 97.4 F L Temperature Source Temporal Pulse Rate 106 H 95 106 H Respiratory Rate 15 11 L 17 Blood Pressure 129/89 H 117/98 H Blood Pressure Mean 102 104 Pulse Ox 98 100 Oxygen Delivery Method Room Air Room Air 06/30/21 21:31 06/30/21 22:02 06/30/21 23:33 Temperature Temperature Source Pulse Rate 110 H 104 H 110 H Respiratory Rate 16 16 21 H Blood Pressure 115/98 H 136/108 H 118/89 H Blood Pressure Mean 103 117 98 Pulse Ox 98 97 99 Oxygen Delivery Method Room Air Room Air Positive well nourished and well developed General Appearance ED: well developed HEENT Reports moist mucous membranes Eyes PERRL and EOMs intact bilaterally Neck supple Chest Wall inspection of chest normal and palpation of chest normal Resp normal respiratory effort and clear to auscultation bilaterally Cardio regular rate and regular rhythm GI non-tender Palpation: soft Extremity Extremity Narrative: Small scabbed dry wounds to the right forefoot, heel, and fourth toe. No surrounding cellulitis or erythema. No drainage from the wounds. Foot is cool to the touch. Small scab/necrotic skin noted to distal tips of a few fingers on each hand. This appears to be chronic in nature as well. Neuro oriented x3 Sensorium / Orientation: alert Psych mental status grossly normal MDM MDM MDM Narrative Medical decision making narrative: Patient was given morphine and Zofran for pain. He was given albuterol nebulized treatment at his request. Lab work and right foot x-rays obtained. Lab Data Attestation: I reviewed the patient's lab results. Labs: Laboratory Results - last 24 hr 06/30/21 06/30/21 06/30/21 19:49 20:18 20:18 WBC 11.0 RBC 4.56 L Hgb 14.6 Hct 45.2 MCV 99.1 H MCH 32.0 MCHC 32.3 RDW Std Deviation 70.5 H RDW Coeff of Dariel 19.9 H Plt Count 129 L MPV 11.6 Immature Gran % (Auto) 0.500 Neut % (Auto) 82.4 H Lymph % (Auto) 7.9 L [place] % (Auto) 8.5 Eos % (Auto) 0.4 Baso % (Auto) 0.3 Absolute Neuts (auto) 9.1 H Absolute Lymphs (auto) 0.87 Nucleated RBC % 0 Differential Comment SCANNED Anisocytosis 2+ Microcytosis 1+ Macrocytosis 1+ PT 16.8 H INR 1.4 Sodium 135 L Potassium 4.7 Chloride 106 Carbon Dioxide 22.0 Anion Gap 7 BUN 22 H Creatinine 0.97 Estim Creat Clear Calc 63.91 Est GFR (MDRD) Af Amer 102 Est GFR (MDRD) Non-Af 84 BUN/Creatinine Ratio 22.7 H Glucose 98 Lactic Acid Calcium 8.7 06/30/21 20:18 WBC RBC Hgb Hct MCV MCH MCHC RDW Std Deviation RDW Coeff of Dariel Plt Count MPV Immature Gran % (Auto) Neut % (Auto) Lymph % (Auto) [place] % (Auto) Eos % (Auto) Baso % (Auto) Absolute Neuts (auto) Absolute Lymphs (auto) Nucleated RBC % Differential Comment Anisocytosis Microcytosis Macrocytosis PT INR Sodium Potassium Chloride Carbon Dioxide Anion Gap BUN Creatinine Estim Creat Clear Calc Est GFR (MDRD) Af Amer Est GFR (MDRD) Non-Af BUN/Creatinine Ratio Glucose Lactic Acid 2.4 H* Calcium Radiography Diagnostic Testing: Clinical Impression(s) from Imaging Studies Foot X-Ray 06/30/21 21:00 IMPRESSION: No demonstrated fracture or suspicious osseous lesion Skin ulceration posterior to the calcaneus Electronically Signed: Angel Garcia MD at 22:01 EST Reading Location ID and State: [facility] / [place] , Service support , Lower Extremity CTA 06/30/21 21:07 IMPRESSION: Atherosclerotic disease of the distal right SFA with normal appearance of the popliteal trifurcation however, beyond the level of the trifurcation, extremely low blood flow which is barely discernible to the level of the foot. Concerning for severe peripheral vascular disease. Electronically Signed: Romulo Cheng DO at 22:26 EST Reading Location ID and State: [facility] / [place] Tel , Service support , Treatment and Re-Evaluation Comments:: Lab work reveals normal white count. INR is subtherapeutic at 1.4. Lactic acid slightly elevated at 2.4. Right foot x-ray per my interpretation reveals no acute bony destruction. Radiology to rotation is reviewed. Because the patient is subtherapeutic on his Coumadin a CTA of the pelvis with runoff to the right lower extremity was obtained. This does reveal extremely low blood flow distal to the popliteal region. I was able to compare this reading to a angiogram that he had done at [facility] approximately 3 weeks ago. This appears unchanged. I did discuss with the patient the importance of making sure his Coumadin is therapeutic. For the next 2 days patient is to double his normal Coumadin. He is to follow-up with his primary care physician in 5 to 7 days for repeat INR. Per the discharge summary from [facility] patient is a high risk surgical candidate given his cardiac history. They have elected to treat the patient medically with no surgical intervention. Discharge Plan Triage Chief Complaint: Lower Extremity Injury ED Provider: Linda Godfrey Dx/Rx/DC Orders Clinical Impression: Peripheral artery disease Instructions: ED Peripheral Artery Disease (PAD) Prescriptions: No Action prednisone 2.5 mg tablet 2.5 mg PO BID RF: 0 omeprazole 20 mg tablet,delayed release (DR/EC) 20 mg PO DAILY RF: 0 cholecalciferol (vitamin D3) [Vitamin D3] 25 mcg (1,000 unit) tablet,chewable 25 mcg PO DAILY RF: 0 ibuprofen 600 mg tablet 600 mg PO TID PRN (Reason: pain) Qty: 30 RF: 0 carvedilol 6.25 mg tablet 6.25 mg PO BID RF: 0 lisinopril 10 mg tablet 10 mg PO DAILY RF: 0 albuterol sulfate 90 mcg/actuation HFA aerosol inhaler 1 - 2 puff INHALATION Q4H PRN PRN (Reason: Shortness Of Breath) RF: 0 Primary Care Provider: Hood Ballesteros Referrals: Hood Ballesteros DO [Primary Care Provider] - 5-7 Days Activity Restrictions/Additional Instructions: As discussed, please double your Coumadin dose for the next 2 nights. Please follow-up with Dr. Dinero in the next 5 to 7 days for a repeat INR level. Disposition Disposition: Home, Self Care
[2021-06-30] MEDS: Ondansetron 4 MG/2 ML Vial IV (19:53)
[2021-06-30] MEDS: Morphine 4 MG/ML Syringe IV ×2 (19:53→22:01)
[2021-06-30 19:56] VITALS: BP 117/98; PULSE 95; RESP 11; O2SAT 100
[2021-06-30 19:59] LABS: Absolute Lymphocyte Count 0.87 X10^3/uL (0.83-4.51); Absolute Neutrophil Count 9.1 X10^3/uL (2.0-7.7); Basophil# 0.03 X10^3/uL; Basophil% 0.3 % (0-1); Eosinophil# 0.04 X10^3/uL; Eosinophils% 0.4 % (0-5); Hematocrit 45.2 % (40-54); Hemoglobin 14.6 g/dL (13.0-16.5); Lymphocyte # 0.87 X10^3/ul (0.83-4.51); Lymphocyte % 7.9 % (19-41); Mean Corp Hgb Conc 32.3 g/dL (32-36); Mean Corpuscular Volume 99.1 fL (80-94); Mean Platelet Vol. 11.6 fl (6.2-12.0); Monocyte# 0.94 X10^3/uL; Monocyte% 8.5 % (0-10); NRBC Flagged by Analyzer 0 % (0-5); Neutrophil % 82.4 % (47-70); POSITIVE MORPHOLOGY YES; Platelet Count 129 K/mm3 (150-450); RBC Distribution Width CV 19.9 % (11.6-14.6); RBC Distribution Width SD 70.5 fl (35.1-43.9); Red Blood Count 4.56 M/mm3 (4.6-6.2)
[2021-06-30 20:04] LABS: Differential Indicated SCAN CRITERIA MET
[2021-06-30 20:35] LABS: Anisocytosis 2+; Differential Comment SCANNED; Macrocytosis 1+; Microcytosis 1+
[2021-06-30 20:40] LABS: International Normalized Ratio 1.4; Prothrombin Time (Protime)PT. 16.8 SECONDS (11.7-14.9)
[2021-06-30] MEDS: Albuterol 2.5 MG/3 ML VIAL.NEB. INHALATION (20:44)
[2021-06-30 20:45] VITALS: PULSE 106; RESP 17
[2021-06-30 20:46] LABS: Anion Gap 7 (5-15); BUN 22 mg/dL (7-18); BUN/Creat Ratio 22.7 RATIO (10-20); Calcium,Total 8.7 mg/dL (8.5-10.1); Chloride 106 mmol/L (98-107); Creatinine, Serum 0.97 mg/dL (0.70-1.30); EST Glomerular Filtration Rate 84 mL/min (>60); Est Glom Filt Rate - Afr Amer 102 mL/min (>60); Estimated Creatinine Clearance 63.91 ml/min; Glucose 98 mg/dL (74-106); Potassium 4.7 mmol/L (3.5-5.1); Sodium Level 135 mmol/L (136-145)
--- NOTE | 2021-06-30 21:00 | RAD_ITS ---
STUDY: X-RAY - RIGHT FOOT CLINICAL: Male, 60 years old. Pain and swelling TECHNIQUE: History view(s) of the foot. COMPARISON: None. FINDINGS: Normal talus, calcaneus, and tarsal bones. Normal visualized subtalar, talonavicular, calcaneocuboid, tarsal and tarsometatarsal articulations. Normal metatarsi. Normal metatarsophalangeal joint of the great toe. Normal tibial and fibular sesamoid bones. Normal interphalangeal joint of the great toe. Normal phalanges of the great toe. Normal second through fifth metatarsophalangeal joints. Normal interphalangeal joints and phalanges of the lesser toes. There is evidence of an ulcer posterior to the calcaneus at the site of the marker but there is no associated calcaneal abnormality. Specifically, no calcaneal fracture or erosive calcaneal lesion RAD/Foot min 3 Views IMPRESSION: No demonstrated fracture or suspicious osseous lesion Skin ulceration posterior to the calcaneus Electronically Signed: Angel Garcia MD at 22:01 EST ,
[2021-06-30 21:06] LABS: Lactic Acid 2.4 mmol/L (0.4-1.9)
--- NOTE | 2021-06-30 21:07 | CT_ITS ---
STUDY: CTA OF THE RIGHT LOWER EXTREMITY REASON FOR EXAM: Male, 60 years old. RLE pain -- H/O vascular disease, subtherapeutic INR RADIATION DOSAGE (If Supplied By Facility): CTDIvol = ( 2.88 ) mGy, DLP = ( 656.53 ) mGycm TECHNIQUE: Axial CT angiography multi-detector data acquisition was obtained from the aortic bifurcation to the right foot following intravenous administration of IV 100mL [id number]-[id number]. Axial images and MIP images were reconstructed from the axial data set. Post-processing of the angiographic images was performed, with multiplanar reformation and 3D reconstruction. Individualized dose optimization techniques were used for this CT. TECHNICAL QUALITY: Good COMPARISON: None. Descriptors of Narrowing: None (0%) Mild (< 50%) Moderate (50-70%) Severe (70-90%) Subtotal/Total Occlusion (90-100%) Non-Evaluable (technically non-diagnostic FINDINGS: Normal appearance of the common femoral artery and proximal and mid superficial femoral artery. In the right distal superficial femoral artery, there is moderate atherosclerotic disease with intimal wall thickening. No evidence of significant luminal stenosis. Normal appearance of the popliteal artery and popliteal trifurcation. There is decreased blood flow to the right lower extremity within the [employer]SERR[employer], [employer]LYT[employer] STRATEGIST and DPA as compared to the left side. Virtually no discernible flow beyond the level of the mid lower leg. CT/CTA LWR EXTR W/O & W/DYE IMPRESSION: Atherosclerotic disease of the distal right SFA with normal appearance of the popliteal trifurcation however, beyond the level of the trifurcation, extremely low blood flow which is barely discernible to the level of the foot. Concerning for severe peripheral vascular disease. Electronically Signed: Romulo Cheng DO at 22:26 EST ,
[2021-06-30 21:31] VITALS: BP 115/98; PULSE 110; RESP 16; O2SAT 98
[2021-06-30 22:02] VITALS: BP 136/108; PULSE 104; RESP 16; O2SAT 97
[2021-06-30 23:33] VITALS: BP 118/89; PULSE 110; RESP 21; O2SAT 99
[2021-07-01 00:24] LABS: Reflex Lactate? Y
== END 2021-07-01 01:27 | disposition home or self-care (01) ==
PROVIDERS: Emergency Provider Emergency Medicine; PCP Family Medicine; Visit Provider Emergency Medicine
DX: S99.921A Unspecified injury of right foot, initial encounter (principal); I73.9 Peripheral vascular disease, unspecified; S61.209A Unspecified open wound of unspecified finger without damage to nail, initial encounter; F17.210 Nicotine dependence, cigarettes, uncomplicated; X58.XXXA Exposure to other specified factors, initial encounter; Y93.9 Activity, unspecified; Y99.9 Unspecified external cause status; Y92.9 Unspecified place or not applicable; I10 Essential (primary) hypertension; Z79.01 Long term (current) use of anticoagulants; Z79.52 Long term (current) use of systemic steroids
CPT/HCPCS: 73630; 73706; 80048; 83605; 85025; 85610; 94640; 96374; 96375; 96376; 99285; Q9967; A4216; J2405

== ENCOUNTER → 2021-07-11 | Outpatient (REF) | payer SELFPAY ==
[2021-07-11 06:48] LABS: Basophil# 0.03 X10^3/uL; Basophil% 0.3 % (0-1); Eosinophil# 0.08 X10^3/uL; Eosinophils% 0.9 % (0-5); Hematocrit 40.2 % (40-54); Hemoglobin 13.6 g/dL (13.0-16.5); Lymphocyte % 10.2 % (19-41); Mean Corp Hgb Conc 33.8 g/dL (32-36); Mean Corpuscular Hgb 32.4 pg (27.0-32.0); Mean Corpuscular Volume 95.7 fL (80-94); Mean Platelet Vol. 12.3 fl (6.2-12.0); Monocyte# 0.74 X10^3/uL; Monocyte% 8.4 % (0-10); NRBC Flagged by Analyzer 0 % (0-5); Neutrophil # 7.02 X10^3/uL (2.7-7.7); Neutrophil % 79.2 % (47-70); POSITIVE MORPHOLOGY YES; Platelet Count 137 K/mm3 (150-450); RBC Distribution Width CV 20.1 % (11.6-14.6); RBC Distribution Width SD 68.2 fl (35.1-43.9); White Blood Count 8.9 K/mm3 (4.4-11.0)
[2021-07-11 06:49] LABS: Differential Indicated SCAN CRITERIA MET
[2021-07-11 07:04] LABS: Anisocytosis 2+; Differential Comment SCANNED; Macrocytosis 2+
[2021-07-11 07:08] LABS: Anion Gap 7 (5-15); BUN 17 mg/dL (7-18); BUN/Creat Ratio 33.3 RATIO (10-20); Calcium,Total 8.2 mg/dL (8.5-10.1); Chloride 105 mmol/L (98-107); Creatinine, Serum 0.51 mg/dL (0.70-1.30); EST Glomerular Filtration Rate 177 mL/min (>60); Est Glom Filt Rate - Afr Amer 214 mL/min (>60); Glucose 97 mg/dL (74-106); Magnesium 1.9 mg/dL (1.6-2.6); Potassium 4.8 mmol/L (3.5-5.1); Sodium Level 134 mmol/L (136-145)
[2021-07-11 08:01] LABS: Vitamin D,25 Hydroxy 32.7 ng/mL
== END | disposition home or self-care (01) ==
LOC: OLS.SW1020 04:00
PROVIDERS: PCP Family Medicine; Referring Provider Internal Medicine; Visit Provider Internal Medicine
DX: I11.0 Hypertensive heart disease with heart failure (principal); I50.9 Heart failure, unspecified
CPT/HCPCS: 36415; 80048; 82306; 83735; 85025

== ENCOUNTER → 2021-07-15 | Outpatient (REF) | payer SELFPAY ==
[2021-07-15 09:05] LABS: Cholesterol 88 mg/dL (200); High Density Lipoprotein 39 mg/dL; Thyroid Stim Hormone (TSH) 3.71 uIU/mL (0.358-3.74); Triglycerides 56 mg/dL; Very Low Density Lipoprotein 11 mg/dL (5-40)
[2021-07-15 09:11] LABS: Digoxin Level 0.53 ng/mL (0.80-2.00)
== END | disposition home or self-care (01) ==
LOC: OLS.SW1020 04:00
PROVIDERS: PCP Family Medicine; Referring Provider Internal Medicine; Visit Provider Internal Medicine
DX: I10 Essential (primary) hypertension (principal); J44.9 Chronic obstructive pulmonary disease, unspecified; I82.401 Acute embolism and thrombosis of unspecified deep veins of right lower extremity; E78.5 Hyperlipidemia, unspecified
CPT/HCPCS: 36415; 80061; 80162; 84443

== ENCOUNTER → 2021-07-17 | Outpatient (REF) | payer SELFPAY ==
[2021-07-17 08:50] LABS: Digoxin Level 0.72 ng/mL (0.80-2.00)
== END | disposition home or self-care (01) ==
LOC: OLS.SW1020 04:00
PROVIDERS: PCP Family Medicine; Referring Provider Internal Medicine; Visit Provider Internal Medicine
DX: Z79.899 Other long term (current) drug therapy (principal)
CPT/HCPCS: 36415; 80162

== ENCOUNTER → 2021-07-22 | Outpatient (REF) | payer SELFPAY ==
[2021-07-22 07:57] LABS: Absolute Lymphocyte Count 0.96 X10^3/uL (0.83-4.51); Absolute Neutrophil Count 4.4 X10^3/uL (2.0-7.7); Basophil# 0.09 X10^3/uL; Basophil% 1.3 % (0-1); Eosinophil# 0.23 X10^3/uL; Eosinophils% 3.3 % (0-5); Hematocrit 36.6 % (40-54); Hemoglobin 12.1 g/dL (13.0-16.5); Lymphocyte # 0.96 X10^3/ul (0.83-4.51); Lymphocyte % 13.9 % (19-41); Mean Corp Hgb Conc 33.1 g/dL (32-36); Mean Corpuscular Volume 96.8 fL (80-94); Mean Platelet Vol. 10.4 fl (6.2-12.0); Monocyte# 1.14 X10^3/uL; Monocyte% 16.5 % (0-10); NRBC Flagged by Analyzer 0 % (0-5); Neutrophil # 4.41 X10^3/uL (2.7-7.7); Neutrophil % 63.7 % (47-70); POSITIVE MORPHOLOGY YES; Platelet Count 306 K/mm3 (150-450); RBC Distribution Width CV 19.3 % (11.6-14.6); RBC Distribution Width SD 67.9 fl (35.1-43.9); Red Blood Count 3.78 M/mm3 (4.6-6.2); White Blood Count 6.9 K/mm3 (4.4-11.0)
[2021-07-22 08:01] LABS: Differential Indicated SCAN CRITERIA MET
[2021-07-22 08:16] LABS: Anion Gap 6 (5-15); BUN 24 mg/dL (7-18); BUN/Creat Ratio 47.4 RATIO (10-20); Calcium,Total 8.5 mg/dL (8.5-10.1); Chloride 101 mmol/L (98-107); Creatinine, Serum 0.51 mg/dL (0.70-1.30); EST Glomerular Filtration Rate 179 mL/min (>60); Est Glom Filt Rate - Afr Amer 216 mL/min (>60); Glucose 101 mg/dL (74-106); Magnesium 1.7 mg/dL (1.6-2.6); Potassium 3.9 mmol/L (3.5-5.1); Sodium Level 132 mmol/L (136-145)
[2021-07-22 08:23] LABS: Anisocytosis 1+
== END | disposition home or self-care (01) ==
LOC: OLS.SW1020 05:15
PROVIDERS: PCP Family Medicine; Visit Provider Internal Medicine
DX: I13.0 Hypertensive heart and chronic kidney disease with heart failure and stage 1 through stage 4 chronic kidney disease, or unspecified chronic kidney disease (principal); J44.9 Chronic obstructive pulmonary disease, unspecified; I50.9 Heart failure, unspecified; I82.401 Acute embolism and thrombosis of unspecified deep veins of right lower extremity; I70.202 Unspecified atherosclerosis of native arteries of extremities, left leg; N18.9 Chronic kidney disease, unspecified
CPT/HCPCS: 36415; 80048; 83735; 85025

== ENCOUNTER 2021-08-29 13:30 | Outpatient (RCR) | payer MEDICAID, SELFPAY ==
[2021-08-22 13:34] VITALS: BP 104/83; PULSE 68; TEMP 35.7; BMI 16.7
--- NOTE | 2021-08-22 14:57 | RAD_ITS ---
EXAM: XR LEFT FINGERS, 2 OR MORE VIEWS CLINICAL INDICATION: GANGRENE -- LT INDEX FINGER Technologist Notes wound/gangrene bilateral index fingers TECHNIQUE: Frontal, lateral and oblique views of the fingers of the left hand. This report was created using [employer] report generation technology. COMPARISON: None. FINDINGS: BONES/JOINTS: Unremarkable. No acute fracture. No subluxation. Normal alignment. Preservation of the joint space. No sclerotic or destructive changes observed. SOFT TISSUES: Soft tissue swelling around the second digit. Erosive and destructive changes around the distal second phalanx concerning for osteomyelitis. No radiopaque foreign body. RAD/Finger(s) Min 2 Views IMPRESSION: Soft tissue swelling around the second digit. Erosive and destructive changes around the distal second phalanx concerning for osteomyelitis. Electronically Signed: Rosalino Brewer MD at 15:41 EDT ,
--- NOTE | 2021-08-22 14:59 | RAD_ITS ---
EXAM: XR RIGHT TOES, 2 OR MORE VIEWS CLINICAL INDICATION: GANGRENE -- RT 4TH TOE TECHNIQUE: Frontal, lateral and oblique views of the toes of the right foot. This report was created using [employer] report generation technology. COMPARISON: 06.30.21. FINDINGS: BONES/JOINTS: See below. SOFT TISSUES: There is soft tissue swelling and ulceration of the dorsum of the 4th digit. No fracture. No radiopaque foreign body. RAD/Toe(s) Min 2 Views IMPRESSION: There is soft tissue swelling and ulceration of the dorsum of the 4th digit. No fracture. Electronically Signed: Rosalino Brewer MD at 16:20 EDT ,
--- NOTE | 2021-08-22 15:10 | RAD_ITS ---
EXAM: XR RIGHT FINGERS, 2 OR MORE VIEWS CLINICAL INDICATION: GANGRENE -- RIGHT INDEX FINGER Technologist Notes wound/gangrene bilateral index fingers TECHNIQUE: Frontal, lateral and oblique views of the fingers of the left hand. This report was created using [employer] report generation technology. COMPARISON: None. FINDINGS: BONES/JOINTS: Unremarkable. No acute fracture. No subluxation. Normal alignment. Preservation of the joint space. SOFT TISSUES: Soft tissue swelling around the second digit. Erosive and destructive changes around the distal second phalanx concerning for osteomyelitis. No radiopaque foreign body. RAD/Finger(s) Min 2 Views IMPRESSION: Soft tissue swelling around the second digit. Erosive and destructive changes around the distal second phalanx concerning for osteomyelitis. Electronically Signed: Rosalino Brewer MD at 16:19 EDT ,
--- NOTE | 2021-08-22 16:50 | PCM.WC.HP ---
History of Present Illness Date of Service: 08/22/21 Chief Complaint: Black bilateral index fingers and wounds to his right lower extremity History of Wound: This is a 60-year-old white male who presents to the wound healing center today with complaints of discoloration to his bilateral index fingers and also wounds to his right lower extremity with black discoloration to his right fourth toe as well. The patient states that his wounds to his right lower extremity have been present over the last 2 months and he states that his wounds to his bilateral index fingers have developed over the last 3 or 4 months as well. He has attributed these wounds to frostbite as he states that he has poor circulation and a ejection fraction of only 10% and that when he gets cold that he develops wounds. He has been covering the wounds with a dry dressing. He does state that he recently was in [facility] but was discharged a couple weeks ago and living at home with his girlfriend. The patient states that he has had a significant past medical history and that he has had multiple work-ups for his cardiac issues and also has wounds at [facility]. He states that he follows up closely with a vascular surgeon and he tells me that his recent vascular work-up was normal. Unfortunately records are not available for review at this time. Patient does not seem very concerned about any of his issues today and states that they are slowly healing. He unfortunately continues to smoke 1 pack/day. He denies any systemic or localized signs of infection at this time. He denies any other acute concerns. Past medical, family, and social history reviewed and not pertinent to the current visit and all other systems reviewed and negative with exception of those listed above. [facility] Medical History (Updated 08/22/21 @ 17:02 by Jasbir Quintero NP, ROAD DESIGN ENGINEER-C) Alcohol abuse Back problem Chronic toe ulcer Discoloration of skin of finger Dry gangrene Frostbite of finger of right hand High blood pressure Lung cancer Osteomyelitis of finger of left hand Osteomyelitis of finger of right hand PAD (peripheral artery disease) Skin necrosis Ulcer of right lower extremity Vitamin deficiency Home Medications cholecalciferol (vitamin D3) 25 mcg (1,000 unit) chewable tablet 25 mcg PO DAILY 04/26/20 [History Last Taken Unknown] ibuprofen 600 mg tablet 600 mg PO TID PRN #30 tab 04/26/20 [Rx Last Taken Unknown] omeprazole 20 mg tablet,delayed release 20 mg PO DAILY 04/26/20 [History Last Taken Unknown] prednisone 2.5 mg tablet 2.5 mg PO BID 04/26/20 [History Last Taken Unknown] albuterol sulfate 1 - 2 puff INHALATION Q4H PRN PRN 12/16/20 [History Last Taken Unknown] carvedilol 6.25 mg PO BID 12/16/20 [History Last Taken Unknown] lisinopril 10 mg PO DAILY 12/16/20 [History Last Taken Unknown] rivaroxaban [Xarelto] 10 mg PO DAILY 08/22/21 [History Last Taken Unknown] Allergy/AdvReac Type Severity Reaction Status Date / Time No Known Allergies Allergy Verified 06/30/21 18:38 Family History Father Asthma Heart disease Mother Kidney disease Surgical History History of fusion of cervical spine Social History Smoking Status: Current every day smoker tobacco type: cigarettes counseling given: provider counseling and counseling >10 minutes alcohol intake: current substance use type: does not use additional social history: DOES TAKE ASPIRIN NEEDED DOES TAKE IBUPROFEN NEEDED ROS ROS Narrative Negative x10 systems with exception of those listed above Vital Signs Vital Signs Vital Signs: 08/22/21 13:34 Temperature 96.3 F L Temperature Source Temporal Pulse Rate 68 Blood Pressure 104/83 H Blood Pressure Mean 90 Blood Pressure Source Monitor Weight Weight: 110 lb Body Mass Index (BMI) 16.7 Physical Exam Const alert, oriented x3, no apparent distress, healthy appearing and well nourished Constitutional Narrative: Patient appears much older than stated age General Appearance: cooperative Exam Limitations: no limitations HEENT normocephalic Head and Scalp: normal to inspection Mouth: oral and palatal mucosa normal Eyes General Eye: normal appearance of both eyes Resp normal respiratory effort, normal air movement and no use of accessory muscles Effort and Inspection: able to speak in complete sentences Auscultation: clear to auscultation bilaterally Cardio regular rate, regular rhythm, S1 normal heart sound, S2 normal heart sound, no murmurs and peripheral pulses 2+ throughout Palpation: normal PMI Rate: regular rate Heart Sounds: S1 normal and S2 normal GI normal to inspection, nondistended, normoactive bowel sounds, soft to palpation, non-tender and non-distended Palpation: soft Extremity normal to inspection and full ROM General Extremity: normal exam except as noted Skin Wound Narrative: Dry gangrene present to bilateral index fingers and right fourth toe, ulceration present to right heel and also right medial lower extremity with adherent slough, no signs of obvious infection at this time. Dorsal pedis pulses are not palpable on the right lower extremity Neuro oriented x3 and moves all extremities Sensorium / Orientation: awake, alert, oriented to person, oriented to place and oriented to time Psych mental status grossly normal, thought process normal and denies hallucinations Appearance: grossly normal Attitude: calm Activity / Motor Behavior: appropriate eye contact Speech: normal speech Thought Process: normal thought process Thought Content: normal thought content Attention / Concentration: attention grossly intact Insight: insight good Judgement: judgement good Debridement Note Debridement Note Wound debrided: Right medial lower extremity arterial ulceration Laterality: Right Type of Debridement: Excisional debridement Anesthesia Used: 5% Lidocaine Gel Depth: Down to and including healthy tissue and in the subcutaneous layer Percentage of wound debrided: 100 Instrument Used: 5mm curette Tissue Removed: Slough and devitalized tissue Severity: Fat Layer Exposed Amount of bleeding with debridement: Mild Bleeding Controlled with: Pressure Patient tolerated procedure: Patient tolerated procedure well Debridement Free Text: No other debridements indicated on the dry gangrene Post-Debridement Measurements and Additional Note: Post-Debridement Measurements/Treatment SYLVIA - Nurse 1 - General Ulcer Assessment Start: 08/22/21 13:34 Freq: Status: Active Protocol: ATA Activity Type Activity Date Activity User E-Sign Co-Sign Detail Recorded Client Recorded Date Recorded By Document 08/22/21 13:34 CT [id number] 08/22/21 13:55 AK 08/22/21 13:34 - Today's Visit Information Type of service Initial Visit Arrival Mode Ambulatory Patient Identification Verified (Name & Yes ) Patient Requires Transmission-Based No Precautions Safety Precautions NA Height and Weight Height 5 ft 8 in Weight 110 lb Weight in Pounds 110.0 lbs Body Mass Index (BMI) 16.7 BMI Classification Underweight BSA - Mckenzie 1.59 Vital Signs Temperature (97.8 F-99.1 F) 96.3 F L Temperature Source Temporal Pulse Rate (60-100) 68 Pulse Location Monitor Blood Pressure (90/60-120/80) 104/83 H Blood Pressure Mean 90 Source Monitor History Since Last Visit- (Skip if this is Patient's initial visit) Left Footwear Regular Shoe Right Footwear Regular Shoe Pain Scale: 0-10 Numeric Is Patient Pain Free? Yes WC - Nurse 1 - General Ulcer Measurement Start: 08/22/21 13:34 Freq: Status: Active Protocol: Activity Type Activity Date Activity User E-Sign Co-Sign Detail Recorded Client Recorded Date Recorded By Document 08/22/21 13:34 CT [id number] 08/22/21 13:55 AK 08/22/21 13:34 Wound Center Nurse 1 #4 L 2nd digit -Combined with other wound No -Current Size (cm) - Length 1.9 -Current Size (cm) - Width 1.5 -Current Size (cm) - Depth 0.1 -Total Square Cm 2.85 -Date of Last Picture (Recall this 08/22/21 field) -Photo Taken Yes -Tunneling No -Undermining/Tunneling No -Circular Undermining No -Exudate Amt None Present -Wound Margin Distinct, Outline Attached -Granulation Amt None Present (0 %) -Slough/Fibrin Yes -Necrosis Amt Large (67-100%) -Necrotic Tissue Type Eschar -Structure Exposed N/A -Texture (Nanci-wound Skin Appearance) Assessed,Callus -Moisture (Nanci-wound Skin Appearance) Assessed,Dry/ Scaly -Color (Nanci-wound Skin Appearance) Assessed -Temperature (Nanci-wound Skin No Abnormality Appearance) (Pt Warm) -Tenderness on Palpation (Nanci-wound Yes Skin Appearance) -Ulcer Cleansing Rinsed/ Irrigated with Saline -Foul Odor after Cleansing No -Anesthetic Used 5% Lidocaine Gel #3 R med campbell -Combined with other wound No -Current Size (cm) - Length 0.6 -Current Size (cm) - Width 0.9 -Current Size (cm) - Depth 0.1 -Total Square Cm 0.54 -Date of Last Picture (Recall this 08/22/21 field) -Photo Taken Yes -Epithelialization None Present -Tunneling No -Undermining/Tunneling No -Circular Undermining No -Exudate Amt None Present -Wound Margin Distinct, Outline Attached -Granulation Quality N/A -Slough/Fibrin Yes -Necrosis Amt Large (67-100%) -Necrotic Tissue Type Eschar -Structure Exposed N/A -Texture (Nanci-wound Skin Appearance) No Abnormality, Assessed -Moisture (Nanci-wound Skin Appearance) No Abnormality, Assessed -Color (Nanci-wound Skin Appearance) No Abnormality, Assessed -Temperature (Nanci-wound Skin No Abnormality Appearance) (Pt Warm) -Tenderness on Palpation (Nanci-wound No Skin Appearance) -Ulcer Cleansing Rinsed/ Irrigated with Saline -Foul Odor after Cleansing No -Anesthetic Used 4% Lidocaine Solution #2 R heel cluster -Combined with other wound No -Current Size (cm) - Length 4.4 -Current Size (cm) - Width 1.1 -Current Size (cm) - Depth 0.2 -Total Square Cm 4.84 -Date of Last Picture (Recall this 08/22/21 field) -Photo Taken Yes -Epithelialization Small 1-33% -Tunneling No -Undermining/Tunneling No -Circular Undermining No -Exudate Amt Medium -Exudate Type Serosanguineous -Wound Margin Distinct, Outline Attached -Granulation Amt Small (1-33%) -Granulation Quality Pale,[place] -Slough/Fibrin Yes -Necrosis Amt Small (1-33%) -Necrotic Tissue Type Adherent Slough -Structure Exposed N/A -Texture (Nanci-wound Skin Appearance) Assessed,Callus -Moisture (Nanci-wound Skin Appearance) No Abnormality, Assessed -Color (Nanci-wound Skin Appearance) No Abnormality, Assessed -Temperature (Nanci-wound Skin No Abnormality Appearance) (Pt Warm) -Tenderness on Palpation (Nanci-wound No Skin Appearance) -Ulcer Cleansing Rinsed/ Irrigated with Saline -Foul Odor after Cleansing No -Anesthetic Used 4% Lidocaine Solution #1 R 4th toe -Combined with other wound No -Current Size (cm) - Length 1.3 -Current Size (cm) - Width 1.9 -Current Size (cm) - Depth 0.1 -Total Square Cm 2.47 -Date of Last Picture (Recall this 08/22/21 field) -Photo Taken Yes -Epithelialization None Present -Tunneling No -Undermining/Tunneling No -Circular Undermining No -Change in Wound Grade/Stage No -Exudate Amt Medium -Exudate Type Serosanguineous -Granulation Quality N/A -Necrosis Amt Large (67-100%) -Structure Exposed N/A -Texture (Nanci-wound Skin Appearance) Assessed, Excoriation -Moisture (Nanci-wound Skin Appearance) Assessed,Dry/ Scaly -Color (Nanci-wound Skin Appearance) No Abnormality, Assessed -Temperature (Nanci-wound Skin No Abnormality Appearance) (Pt Warm) -Tenderness on Palpation (Nanci-wound No Skin Appearance) -Ulcer Cleansing Rinsed/ Irrigated with Saline -Foul Odor after Cleansing No -Anesthetic Used 5% Lidocaine Gel WC - Nurse 2 - General Ulcer CM Notes Start: 08/22/21 13:34 Freq: Status: Active Protocol: Activity Type Activity Date Activity User E-Sign Co-Sign Detail Recorded Client Recorded Date Recorded By Document 08/22/21 14:12 MW [id number] 08/22/21 14:29 MW 08/22/21 14:12 Wound Center Nurse 2 #4 L 2nd digit -Time 14:12 -Correct Patient Yes -Correct Side, Site, Position Yes -Correct Procedure Yes -Procedure Performed No -Wound/Ulcer Outcome Not Healed #3 R med campbell -Time 14:16 -Correct Patient Yes -Correct Side, Site, Position Yes -Correct Procedure Yes -Procedure Performed Yes -Type of Procedure Debridement -Clinical Debridement Subcutaneous -Tissue Removed Subcutaneous -Post Debridement (cm) - Length 1.0 -Post Debridement (cm) - Width 0.8 -Post Debridement (cm) - Depth 0.2 -Total Square (Post) (cm) 0.80 -Area of Debridement (cm) - Length 1.0 -Area of Debridement (cm) - Width 0.8 -Total Square (Area) (cm) 0.80 -Tunneling No -Undermining/Tunneling No -Circular Undermining No -Wound/Ulcer Outcome Not Healed -Ulcer Cleansing Rinsed/ Irrigated with Saline -Foul Odor after Cleansing No -Bioengineered Tissue No -Bleeding Controlled with Pressure -Treatment Response Procedure Tolerated Well -Offloading No -Debridement - Subq, 1st 20sq cm Yes #2 R heel cluster -Time 14:24 -Correct Patient Yes -Correct Side, Site, Position Yes -Correct Procedure Yes -Procedure Performed Yes -Type of Procedure Debridement -Clinical Debridement Subcutaneous -Tissue Removed Subcutaneous -Post Debridement (cm) - Length 1.5 -Post Debridement (cm) - Width 2.0 -Post Debridement (cm) - Depth 0.2 -Total Square (Post) (cm) 3.00 -Area of Debridement (cm) - Length 1.5 -Area of Debridement (cm) - Width 2.0 -Total Square (Area) (cm) 3.00 -Tunneling No -Undermining/Tunneling No -Circular Undermining No -Wound/Ulcer Outcome Not Healed -Ulcer Cleansing Rinsed/ Irrigated with Saline -Foul Odor after Cleansing No -Bioengineered Tissue No -Bleeding Controlled with Pressure -Treatment Response Procedure Tolerated Well -Offloading No -Debridement - Subq, 1st 20sq cm No #1 R 4th toe -Time 14:24 -Correct Patient Yes -Correct Side, Site, Position Yes -Correct Procedure Yes -Procedure Performed No -Wound/Ulcer Outcome Not Healed Pain Scale: 0-10 Numeric Is Patient Pain Free? Yes - Nurse 3 - General Ulcer D/C NN Start: 08/22/21 13:34 Freq: Status: Active Protocol: Activity Type Activity Date Activity User E-Sign Co-Sign Detail Recorded Client Recorded Date Recorded By Document 08/22/21 14:38 [id number] 08/22/21 14:39 DEVENDRA 08/22/21 14:38 Wound Care Nurse 3 #4 L 2nd digit -Other Dressing betadine -Primary Dressing Covered/Secured with Dry Gauze, Secured with Tape #3 R med campbell -Ulcer Cleansing Rinsed/ Irrigated with Saline -Primary Dressing Applied Silvercel -Primary Dressing Covered/Secured with Dry Gauze, Secured with Tape -Silvercel 1 #2 R heel cluster -Primary Dressing Covered/Secured with Dry Gauze, Secured with Tape #1 R 4th toe -Ulcer Cleansing Rinsed/ Irrigated with Saline -Other Dressing betadine -Primary Dressing Covered/Secured with Dry Gauze, Secured with Tape Pain Scale: 0-10 Numeric Is Patient Pain Free? Yes WC - Visit Discharge Discharge Condition Stable Ambulatory Status Ambulatory Transportation Private Auto Radiology Impression Finger X-Ray 08/22/21 14:57 IMPRESSION: Soft tissue swelling around the second digit. Erosive and destructive changes around the distal second phalanx concerning for osteomyelitis. Electronically Signed: Rosalino Brewer MD at 15:41 EDT , Toe X-Ray 08/22/21 14:59 IMPRESSION: There is soft tissue swelling and ulceration of the dorsum of the 4th digit. No fracture. Electronically Signed: Rosalino Brewer MD at 16:20 EDT , Finger X-Ray 08/22/21 15:10 IMPRESSION: Soft tissue swelling around the second digit. Erosive and destructive changes around the distal second phalanx concerning for osteomyelitis. Electronically Signed: Rosalino Brewer MD at 16:19 EDT , Charges/Coding Visit Charges Office Visits / Consults: [id number] OV L4 Est Procedures Integumentary [id number]: [id number] Jammie subq tissue 20 sq cm/< Assessment/Plan Assessment/Plan (1) Osteomyelitis of finger of left hand: CODE(S): M86.9 - Osteomyelitis, unspecified (2) Osteomyelitis of finger of right hand: CODE(S): M86.9 - Osteomyelitis, unspecified (3) Dry gangrene: CODE(S): I96 - Gangrene, not elsewhere classified (4) Chronic toe ulcer: CODE(S): L97.509 - Non-pressure chronic ulcer of other part of unspecified foot with unspecified severity (5) Ulcer of right lower extremity: CODE(S): L97.919 - Non-pressure chronic ulcer of unspecified part of right lower leg with unspecified severity (6) PAD (peripheral artery disease): CODE(S): I73.9 - Peripheral vascular disease, unspecified (7) Smoker: CODE(S): F17.200 - Nicotine dependence, unspecified, uncomplicated PLAN: Debridement performed today in clinic as annotated above. Silver cell applied to the right medial lower extremity ulcer and right heel ulcer, iodine and dry gauze to the dry gangrenous areas. At home wound-care instructions: See above, Change dressing once daily or more frequently as needed due to contamination. Wash wounds daily with antibacterial soap and water, rinse and dry thoroughly before each dressing change. Compression: Single-layer Tubigrip's Off-loading: The patient was instructed to avoid pressure and friction on the affected areas. Reposition every 2 hours at minimum. Avoid prolonged standing and/or dangling of legs. When seated, feet should be elevated at chest level. Frequent ambulation is encouraged. Diet: Patient encouraged to increase protein intake while taking caution to avoid high carbohydrate and/or sugar intake. Smoking: The risks of smoking and benefits of smoking cessation were discussed with the patient today. The patient is encouraged to quit smoking. If smoking cessation aids are desired, the patient should contact their primary care provider to discuss appropriate options. Labs/cultures/imaging: Cultures ordered and collected today. Routine baseline lab work requested from [facility]. Vascular studies requested from [facility]. General records from [facility] requested as well. X-rays were ordered of the right and left second digit which showed high clinical suspicion for osteomyelitis. Right fourth toe x-ray just showed soft tissue swelling no fracture. Given the suspicion for osteomyelitis the patient will have an urgent referral to [facility] orthopedic surgeon to consider bone biopsy and further evaluation and treatment. Josefa with patient in detail that if any signs symptoms of infection occur that he needs to go to the emergency department. Follow-up: Return to clinic in 1 week for re-evaluation. Return sooner or report to the emergency room should symptoms worsen, or new symptoms arise.
--- NOTE | 2021-08-23 13:16 | WC ---
Attempted to call patient several times regarding x-ray results reviewed per Jasbir Quintero NP. Patient's cell phone message states unable to accept calls. Not able to leave a phone message either. Spoke to patient dad [place] Sr. and asked him to please have the patient call the wound center to discuss his results and treatment plan. Voiced understanding and stated he will text his son and instruct him to call. Jasbir Quintero NP updated on unable to contact patient yet.
[2021-08-29 13:41] VITALS: BP 111/66; PULSE 77; TEMP 36.1; BMI 16.7
--- NOTE | 2021-08-29 20:03 | PCM.WC.PN ---
History of Present Illness Date of Service: 08/29/21 Chief Complaint: Black bilateral index fingers and wounds to his right lower extremity History of Wound: This is a 60-year-old white male who presents to the wound healing center today with complaints of discoloration to his bilateral index fingers and also wounds to his right lower extremity with black discoloration to his right fourth toe as well. The patient states that his wounds to his right lower extremity have been present over the last 2 months and he states that his wounds to his bilateral index fingers have developed over the last 3 or 4 months as well. He has attributed these wounds to frostbite as he states that he has poor circulation and a ejection fraction of only 10% and that when he gets cold that he develops wounds. He has been covering the wounds with a dry dressing. He does state that he recently was in [facility] but was discharged a couple weeks ago and living at home with his girlfriend. The patient states that he has had a significant past medical history and that he has had multiple work-ups for his cardiac issues and also has wounds at [facility]. He states that he follows up closely with a vascular surgeon and he tells me that his recent vascular work-up was normal. Unfortunately records are not available for review at this time. Patient does not seem very concerned about any of his issues today and states that they are slowly healing. He unfortunately continues to smoke 1 pack/day. He denies any systemic or localized signs of infection at this time. He denies any other acute concerns. Past medical, family, and social history reviewed and not pertinent to the current visit and all other systems reviewed and negative with exception of those listed above. Progress of Wound: The patient is very noncompliant with his wound care treatment plan, he has not done any of the treatment modalities as been recommended to him. We were unable to reach him via phone on his results showing osteomyelitis of the bilateral index fingers. Patient was referred to [facility] hand specialist for consideration of bone biopsy and he was also referred to infectious disease. Had an in-depth conversation with patient on the importance of following up with these referrals and that if he does not take his health seriously that it will lead to negative outcomes including infection and high probability of . Patient currently denies any systemic signs of infection at this time. His wound cultures were reviewed and showed staph and patient was sent in doxycycline earlier this week, however still has not picked up his antibiotic. He states that he will consider picking up later this week. Objective Data Objective Data Vital Signs: Vital Signs Temp Pulse BP 96.9 F L 77 111/66 08/29/21 13:41 08/29/21 13:41 08/29/21 13:41 Weight: 110 lb Body Mass Index (BMI) 16.7 Lab / Micro Data Micro: Microbiology 08/22/21 14:20 Wound - Other Gram Stain - Final 08/22/21 14:20 Wound - Other Wound Culture - Final Staphylococcus aureus 08/22/21 14:20 Wound - Other Anaerobic Culture - Final No anaerobic bacteria isolated. Charges/Coding Procedures Integumentary 111xxx-113xx: [id number] Jammie subq tissue 20 sq cm/< Physical Exam Const alert, oriented x3, no apparent distress, healthy appearing and well nourished Constitutional Narrative: Patient appears much older than stated age General Appearance: cooperative Exam Limitations: no limitations HEENT normocephalic Head and Scalp: normal to inspection Mouth: oral and palatal mucosa normal Eyes General Eye: normal appearance of both eyes Resp normal respiratory effort, normal air movement and no use of accessory muscles Effort and Inspection: able to speak in complete sentences Auscultation: clear to auscultation bilaterally Cardio regular rate, regular rhythm, S1 normal heart sound, S2 normal heart sound, no murmurs and peripheral pulses 2+ throughout Palpation: normal PMI Rate: regular rate Heart Sounds: S1 normal and S2 normal GI normal to inspection, nondistended, normoactive bowel sounds, soft to palpation, non-tender and non-distended Palpation: soft Extremity normal to inspection and full ROM General Extremity: normal exam except as noted Skin Wound Narrative: Dry gangrene present to bilateral index fingers and right fourth toe, ulceration present to right heel and also right medial lower extremity with adherent slough, no signs of obvious infection at this time. Dorsal pedis pulses are not palpable on the right lower extremity Neuro oriented x3 and moves all extremities Sensorium / Orientation: awake, alert, oriented to person, oriented to place and oriented to time Psych mental status grossly normal, thought process normal and denies hallucinations Appearance: grossly normal Attitude: calm Activity / Motor Behavior: appropriate eye contact Speech: normal speech Thought Process: normal thought process Thought Content: normal thought content Attention / Concentration: attention grossly intact Insight: insight good Judgement: judgement good Debridement Note Debridement Note Wound debrided: Right heel and medial lower extremity ulcer Laterality: Right Type of Debridement: Excisional debridement Depth: Down to and including healthy tissue and in the subcutaneous layer Percentage of wound debrided: 100 Instrument Used: 5mm curette Tissue Removed: Slough and devitalized tissue Severity: Fat Layer Exposed Amount of bleeding with debridement: Mild Bleeding Controlled with: Pressure Patient tolerated procedure: Patient tolerated procedure well Post-Debridement Measurements and Additional Note: Post-Debridement Measurements/Treatment - Nurse 1 - General Ulcer Assessment Start: 08/22/21 13:34 Freq: Status: Active Protocol: SYLVIA.[email or web address] Activity Type Activity Date Activity User E-Sign Co-Sign Detail Recorded Client Recorded Date Recorded By Document 08/22/21 13:34 [place] [id number] 08/22/21 13:55 AK Document 08/29/21 13:41 [place] [id number] 08/29/21 13:48 AK 08/22/21 08/29/21 13:34 13:41 - Today's Visit Information Type of service Initial Visit Follow-up Visit (Physician/DRY CLEANING ATTENDANT ) Arrival Mode Ambulatory Ambulatory Patient Identification Verified (Name & Yes Yes ) Patient Requires Transmission-Based No No Precautions Safety Precautions NA NA Height and Weight Height 5 ft 8 in Weight 110 lb Weight in Pounds 110.0 lbs Body Mass Index (BMI) 16.7 16.7 BMI Classification Underweight Underweight BSA - Mckenzie 1.59 Vital Signs Temperature (97.8 F-99.1 F) 96.3 F L 96.9 F L Temperature Source Temporal Temporal Pulse Rate (60-100) 68 77 Pulse Location Monitor Monitor Blood Pressure (90/60-120/80) 104/83 H 111/66 Blood Pressure Mean (mm Hg) 90 81 Source Monitor Monitor Have you changed medications since your No last visit? Any new allergies or adverse reactions No Had a fall/change in ADL's that may No increase risk of falls Signs or symptoms of abuse and/or No neglect since last visit Have you been in the hospital since your No last visit? Has dressing in place as prescribed Yes Has compression in place as prescribed N/A Has offloadiing in place as prescribed N/A Experienced any changes in pain level or No management History Since Last Visit- (Skip if this is Patient's initial visit) Left Footwear Regular Shoe Regular Shoe Right Footwear Regular Shoe Surgical Shoe with pressure relief insole Pain Scale: 0-10 Numeric Is Patient Pain Free? Yes Yes WC - Nurse 1 - General Ulcer Measurement Start: 08/22/21 13:34 Freq: Status: Active Protocol: Activity Type Activity Date Activity User E-Sign Co-Sign Detail Recorded Client Recorded Date Recorded By Document 08/22/21 13:34 KY [id number] 08/22/21 13:55 AK Document 08/29/21 13:41 [place] [id number] 08/29/21 13:48 AK 08/22/21 08/29/21 13:34 13:41 Wound Center Nurse 1 #4 L 2nd digit -Combined with other wound No No -Current Size (cm) - Length 1.9 0.5 -Current Size (cm) - Width 1.5 2 -Current Size (cm) - Depth 0.1 0.1 -Total Square Cm 2.85 1.0 -Date of Last Picture (Recall this 08/22/21 field) -Photo Taken Yes No -Tunneling No No -Undermining/Tunneling No No -Circular Undermining No No -Exudate Amt None Present None Present -Wound Margin Distinct, Distinct, Outline Outline Attached Attached -Granulation Amt None Present (0 None Present (0 %) %) -Granulation Quality N/A -Slough/Fibrin Yes No -Necrosis Amt Large (67-100%) Large (67-100%) -Necrotic Tissue Type Eschar Eschar -Structure Exposed N/A N/A -Texture (Nanci-wound Skin Appearance) Assessed,Callus No Abnormality -Moisture (Nanci-wound Skin Appearance) Assessed,Dry/ Dry/Scaly Scaly -Color (Nanci-wound Skin Appearance) Assessed No Abnormality -Temperature (Nanci-wound Skin No Abnormality No Abnormality Appearance) (Pt Warm) (Pt Warm) -Tenderness on Palpation (Nanci-wound Yes No Skin Appearance) -Ulcer Cleansing Rinsed/ Soap and Water Irrigated with Saline -Foul Odor after Cleansing No No -Anesthetic Used 5% Lidocaine 4% Lidocaine Gel Solution #3 R med campbell -Combined with other wound No No -Current Size (cm) - Length 0.6 1.5 -Current Size (cm) - Width 0.9 1.5 -Current Size (cm) - Depth 0.1 0.1 -Total Square Cm 0.54 2.25 -Date of Last Picture (Recall this 08/22/21 field) -Photo Taken Yes No -Epithelialization None Present None Present -Tunneling No No -Undermining/Tunneling No No -Circular Undermining No No -Exudate Amt None Present Small -Exudate Type Serosanguineous -Wound Margin Distinct, Distinct, Outline Outline Attached Attached -Granulation Amt None Present (0 %) -Granulation Quality N/A N/A -Slough/Fibrin Yes No -Necrosis Amt Large (67-100%) Medium (34-66%) -Necrotic Tissue Type Eschar Eschar -Structure Exposed N/A N/A -Texture (Nanci-wound Skin Appearance) No Abnormality, No Abnormality, Assessed Assessed -Moisture (Nanci-wound Skin Appearance) No Abnormality, No Abnormality, Assessed Assessed -Color (Nanci-wound Skin Appearance) No Abnormality, No Abnormality, Assessed Assessed -Temperature (Nanci-wound Skin No Abnormality No Abnormality Appearance) (Pt Warm) (Pt Warm) -Tenderness on Palpation (Nanci-wound No No Skin Appearance) -Ulcer Cleansing Rinsed/ Soap and Water Irrigated with Saline -Foul Odor after Cleansing No No -Anesthetic Used 4% Lidocaine 4% Lidocaine Solution Solution #2 R heel cluster -Combined with other wound No No -Current Size (cm) - Length 4.4 1.5 -Current Size (cm) - Width 1.1 4 -Current Size (cm) - Depth 0.2 0.3 -Total Square Cm 4.84 6.0 -Date of Last Picture (Recall this 08/22/21 field) -Photo Taken Yes No -Epithelialization Small 1-33% -Tunneling No No -Undermining/Tunneling No No -Circular Undermining No No -Change in Wound Grade/Stage No -Exudate Amt Medium Medium -Exudate Type Serosanguineous Serosanguineous -Wound Margin Distinct, Distinct, Outline Outline Attached Attached -Granulation Amt Small (1-33%) Small (1-33%) -Granulation Quality Pale,Colona Pale,Colona -Slough/Fibrin Yes Yes -Necrosis Amt Small (1-33%) Small (1-33%) -Necrotic Tissue Type Adherent Slough Adherent Slough -Structure Exposed N/A N/A -Texture (Nanci-wound Skin Appearance) Assessed,Callus Assessed,Callus -Moisture (Nanci-wound Skin Appearance) No Abnormality, No Abnormality, Assessed Assessed -Color (Nanci-wound Skin Appearance) No Abnormality, No Abnormality, Assessed Assessed -Temperature (Nanci-wound Skin No Abnormality No Abnormality Appearance) (Pt Warm) (Pt Warm) -Tenderness on Palpation (Nanci-wound No No Skin Appearance) -Ulcer Cleansing Rinsed/ Soap and Water Irrigated with Saline -Foul Odor after Cleansing No No -Anesthetic Used 4% Lidocaine 4% Lidocaine Solution Solution #1 R 4th toe -Combined with other wound No No -Current Size (cm) - Length 1.3 1.5 -Current Size (cm) - Width 1.9 2 -Current Size (cm) - Depth 0.1 0.2 -Total Square Cm 2.47 3.0 -Date of Last Picture (Recall this 08/22/21 field) -Photo Taken Yes No -Epithelialization None Present -Tunneling No No -Undermining/Tunneling No No -Circular Undermining No No -Change in Wound Grade/Stage No No -Exudate Amt Medium None Present -Exudate Type Serosanguineous -Granulation Amt None Present (0 %) -Granulation Quality N/A N/A -Slough/Fibrin No -Necrosis Amt Large (67-100%) Large (67-100%) -Necrotic Tissue Type Eschar -Structure Exposed N/A N/A -Texture (Nanci-wound Skin Appearance) Assessed, Assessed, Excoriation Crepitus -Moisture (Nanci-wound Skin Appearance) Assessed,Dry/ No Abnormality, Scaly Assessed -Color (Nanci-wound Skin Appearance) No Abnormality, No Abnormality, Assessed Assessed -Temperature (Nanci-wound Skin No Abnormality No Abnormality Appearance) (Pt Warm) (Pt Warm) -Tenderness on Palpation (Nanci-wound No No Skin Appearance) -Ulcer Cleansing Rinsed/ Soap and Water Irrigated with Saline -Foul Odor after Cleansing No No -Anesthetic Used 5% Lidocaine 4% Lidocaine Gel Solution WC - Nurse 2 - General Ulcer CM Notes Start: 08/22/21 13:34 Freq: Status: Active Protocol: Activity Type Activity Date Activity User E-Sign Co-Sign Detail Recorded Client Recorded Date Recorded By Document 08/22/21 14:12 MW [id number] 08/22/21 14:29 MW Document 08/29/21 14:30 MW [id number] 08/29/21 14:35 MW 08/22/21 08/29/21 14:12 14:30 Wound Center Nurse 2 #4 L 2nd digit -Time 14:12 14:31 -Correct Patient Yes Yes -Correct Side, Site, Position Yes Yes -Correct Procedure Yes Yes -Procedure Performed No No -Tunneling No -Undermining/Tunneling No -Circular Undermining No -Wound/Ulcer Outcome Not Healed Not Healed -Ulcer Cleansing Rinsed/ Irrigated with Saline -Foul Odor after Cleansing No -Bioengineered Tissue No -Bleeding Controlled with NA #3 R med campbell -Time 14:16 14:31 -Correct Patient Yes Yes -Correct Side, Site, Position Yes Yes -Correct Procedure Yes Yes -Procedure Performed Yes Yes -Type of Procedure Debridement Debridement -Clinical Debridement Subcutaneous Subcutaneous -Tissue Removed Subcutaneous Subcutaneous -Post Debridement (cm) - Length 1.0 2.0 -Post Debridement (cm) - Width 0.8 2.0 -Post Debridement (cm) - Depth 0.2 0.1 -Total Square (Post) (cm) 0.80 4.00 -Area of Debridement (cm) - Length 1.0 2.0 -Area of Debridement (cm) - Width 0.8 2.0 -Total Square (Area) (cm) 0.80 4.00 -Tunneling No No -Undermining/Tunneling No No -Circular Undermining No No -Wound/Ulcer Outcome Not Healed Not Healed -Ulcer Cleansing Rinsed/ Rinsed/ Irrigated with Irrigated with Saline Saline -Foul Odor after Cleansing No No -Bioengineered Tissue No No -Bleeding Controlled with Pressure Pressure -Treatment Response Procedure Procedure Tolerated Well Tolerated Well -Offloading No No -Debridement - Subq, 1st 20sq cm Yes Yes #2 R heel cluster -Time 14:24 14:32 -Correct Patient Yes Yes -Correct Side, Site, Position Yes Yes -Correct Procedure Yes Yes -Procedure Performed Yes Yes -Type of Procedure Debridement Debridement -Clinical Debridement Subcutaneous Subcutaneous -Tissue Removed Subcutaneous Subcutaneous -Post Debridement (cm) - Length 1.5 1.2 -Post Debridement (cm) - Width 2.0 2.0 -Post Debridement (cm) - Depth 0.2 0.2 -Total Square (Post) (cm) 3.00 2.40 -Area of Debridement (cm) - Length 1.5 1.2 -Area of Debridement (cm) - Width 2.0 2.0 -Total Square (Area) (cm) 3.00 2.40 -Tunneling No No -Undermining/Tunneling No No -Circular Undermining No No -Wound/Ulcer Outcome Not Healed Not Healed -Ulcer Cleansing Rinsed/ Rinsed/ Irrigated with Irrigated with Saline Saline -Foul Odor after Cleansing No No -Bioengineered Tissue No No -Bleeding Controlled with Pressure Pressure -Treatment Response Procedure Procedure Tolerated Well Tolerated Well -Offloading No No -Debridement - Subq, 1st 20sq cm No No #1 R 4th toe -Time 14:24 14:33 -Correct Patient Yes Yes -Correct Side, Site, Position Yes Yes -Correct Procedure Yes Yes -Procedure Performed No No -Tunneling No -Undermining/Tunneling No -Circular Undermining No -Wound/Ulcer Outcome Not Healed Not Healed -Bleeding Controlled with NA Pain Scale: 0-10 Numeric Is Patient Pain Free? Yes Yes WC - Nurse 3 - General Ulcer D/C NN Start: 08/22/21 13:34 Freq: Status: Active Protocol: Activity Type Activity Date Activity User E-Sign Co-Sign Detail Recorded Client Recorded Date Recorded By Document 08/22/21 14:38 KR [id number] 08/22/21 14:39 KR Document 08/29/21 14:57 ML [id number] 08/29/21 14:59 ML 08/22/21 08/29/21 14:38 14:57 Wound Care Nurse 3 #4 L 2nd digit -Ulcer Cleansing Rinsed/ Irrigated with Saline -Other Dressing betadine betadine -Primary Dressing Covered/Secured with Dry Gauze, Dry Gauze, Secured with Secured with Tape Tape #3 R med campbell -Ulcer Cleansing Rinsed/ Rinsed/ Irrigated with Irrigated with Saline Saline -Foul Odor after Cleansing No -Primary Dressing Applied Silvercel Silvercel -Primary Dressing Covered/Secured with Dry Gauze, Dry Gauze & Secured with Roll Gauze, Tape Secured with Tape -Silvercel 1 1 #2 R heel cluster -Ulcer Cleansing Rinsed/ Irrigated with Saline -Primary Dressing Applied Silvercel -Primary Dressing Covered/Secured with Dry Gauze, Dry Gauze & Secured with Roll Gauze, Tape Secured with Tape -Silvercel 0 #1 R 4th toe -Ulcer Cleansing Rinsed/ Rinsed/ Irrigated with Irrigated with Saline Saline -Foul Odor after Cleansing No -Other Dressing betadine betadine -Primary Dressing Covered/Secured with Dry Gauze, Dry Gauze, Secured with Secured with Tape Tape Pain Scale: 0-10 Numeric Is Patient Pain Free? Yes Yes WC - Visit Discharge Discharge Condition Stable Ambulatory Status Ambulatory Transportation Private Auto Assessment/Plan Assessment/Plan (1) Osteomyelitis of finger of left hand: CODE(S): M86.9 - Osteomyelitis, unspecified (2) Osteomyelitis of finger of right hand: CODE(S): M86.9 - Osteomyelitis, unspecified (3) Dry gangrene: CODE(S): I96 - Gangrene, not elsewhere classified (4) Chronic toe ulcer: CODE(S): L97.509 - Non-pressure chronic ulcer of other part of unspecified foot with unspecified severity (5) Ulcer of right lower extremity: CODE(S): L97.919 - Non-pressure chronic ulcer of unspecified part of right lower leg with unspecified severity (6) PAD (peripheral artery disease): CODE(S): I73.9 - Peripheral vascular disease, unspecified (7) Smoker: CODE(S): F17.200 - Nicotine dependence, unspecified, uncomplicated (8) Noncompliance: CODE(S): Z91.19 - Patient's noncompliance with other medical treatment and regimen PLAN: Debridement performed today in clinic as annotated above. Silver cell applied to the right medial lower extremity ulcer and right heel ulcer, iodine and dry gauze to the dry gangrenous areas. At home wound-care instructions: See above, Change dressing once daily or more frequently as needed due to contamination. Wash wounds daily with antibacterial soap and water, rinse and dry thoroughly before each dressing change. Compression: Single-layer Tubigrip's Off-loading: The patient was instructed to avoid pressure and friction on the affected areas. Reposition every 2 hours at minimum. Avoid prolonged standing and/or dangling of legs. When seated, feet should be elevated at chest level. Frequent ambulation is encouraged. Diet: Patient encouraged to increase protein intake while taking caution to avoid high carbohydrate and/or sugar intake. Smoking: The risks of smoking and benefits of smoking cessation were discussed with the patient today. The patient is encouraged to quit smoking. If smoking cessation aids are desired, the patient should contact their primary care provider to discuss appropriate options. Labs/cultures/imaging: Cultures ordered and collected prior and showed staph, patient never picked up his doxycycline, educated patient on the importance of starting his antibiotic regimen. Routine baseline lab work requested from [facility]. Vascular studies requested from [facility]. General records from [facility] requested as well. X-rays were ordered of the right and left second digit which showed high clinical suspicion for osteomyelitis. Right fourth toe x-ray just showed soft tissue swelling no fracture. Given the suspicion for osteomyelitis the patient will have an urgent referral to [facility] orthopedic surgeon to consider bone biopsy and further evaluation and treatment. Discussed with patient in detail that if any signs symptoms of infection occur that he needs to go to the emergency department. Patient also referred to infectious disease as well. Follow-up: Return to clinic in 1 week for re-evaluation. Return sooner or report to the emergency room should symptoms worsen, or new symptoms arise.
--- NOTE | 2021-08-30 10:03 | PN.PCM_ITS ---
History of Present Illness Date of Service: 08/29/21 Chief Complaint: Black bilateral index fingers and wounds to his right lower extremity History of Wound: This is a 60-year-old white male who presents to the wound healing center today with complaints of discoloration to his bilateral index fingers and also wounds to his right lower extremity with black discoloration to his right fourth toe as well. The patient states that his wounds to his right lower extremity have been present over the last 2 months and he states that his wounds to his bilateral index fingers have developed over the last 3 or 4 months as well. He has attributed these wounds to frostbite as he states that he has poor circulation and a ejection fraction of only 10% and that when he gets cold that he develops wounds. He has been covering the wounds with a dry dressing. He does state that he recently was in [facility] but was discharged a couple weeks ago and living at home with his girlfriend. The patient states that he has had a significant past medical history and that he has had multiple work-ups for his cardiac issues and also has wounds at [facility]. He states that he follows up closely with a vascular surgeon and he tells me that his recent vascular work-up was normal. Unfortunately records are not available for review at this time. Patient does not seem very concerned about any of his issues today and states that they are slowly healing. He unfortunately continues to smoke 1 pack/day. He denies any systemic or localized signs of infection at this time. He denies any other acute concerns. Past medical, family, and social history reviewed and not pertinent to the current visit and all other systems reviewed and negative with exception of those listed above. Progress of Wound: The patient is very noncompliant with his wound care treatment plan, he has not done any of the treatment modalities as been recommended to him. We were unable to reach him via phone on his results showing osteomyelitis of the bilateral index fingers. Patient was referred to [facility] hand specialist for consideration of bone biopsy and he was also referred to infectious disease. Had an in-depth conversation with patient on the importance of following up with these referrals and that if he does not take his health seriously that it will lead to negative outcomes including infection and high probability of . Patient currently denies any systemic signs of infection at this time. His wound cultures were reviewed and showed staph and patient was sent in doxycycline earlier this week, however still has not picked up his antibiotic. He states that he will consider picking up later this week. Objective Data Objective Data Vital Signs: Vital Signs Temp Pulse BP 96.9 F L 77 111/66 08/29/21 13:41 08/29/21 13:41 08/29/21 13:41 Weight: 110 lb Body Mass Index (BMI) 16.7 Lab / Micro Data Micro: Microbiology 08/22/21 14:20 Wound - Other Gram Stain - Final 08/22/21 14:20 Wound - Other Wound Culture - Final Staphylococcus aureus 08/22/21 14:20 Wound - Other Anaerobic Culture - Final No anaerobic bacteria isolated. Charges/Coding Procedures Integumentary 111xxx-113xx: [id number] Jammie subq tissue 20 sq cm/< Physical Exam Const alert, oriented x3, no apparent distress, healthy appearing and well nourished Constitutional Narrative: Patient appears much older than stated age General Appearance: cooperative Exam Limitations: no limitations HEENT normocephalic Head and Scalp: normal to inspection Mouth: oral and palatal mucosa normal Eyes General Eye: normal appearance of both eyes Resp normal respiratory effort, normal air movement and no use of accessory muscles Effort and Inspection: able to speak in complete sentences Auscultation: clear to auscultation bilaterally Cardio regular rate, regular rhythm, S1 normal heart sound, S2 normal heart sound, no murmurs and peripheral pulses 2+ throughout Palpation: normal PMI Rate: regular rate Heart Sounds: S1 normal and S2 normal GI normal to inspection, nondistended, normoactive bowel sounds, soft to palpation, non-tender and non-distended Palpation: soft Extremity normal to inspection and full ROM General Extremity: normal exam except as noted Skin Wound Narrative: Dry gangrene present to bilateral index fingers and right fourth toe, ulceration present to right heel and also right medial lower extremity with adherent slough, no signs of obvious infection at this time. Dorsal pedis pulses are not palpable on the right lower extremity Neuro oriented x3 and moves all extremities Sensorium / Orientation: awake, alert, oriented to person, oriented to place and oriented to time Psych mental status grossly normal, thought process normal and denies hallucinations Appearance: grossly normal Attitude: calm Activity / Motor Behavior: appropriate eye contact Speech: normal speech Thought Process: normal thought process Thought Content: normal thought content Attention / Concentration: attention grossly intact Insight: insight good Judgement: judgement good Debridement Note Debridement Note Wound debrided: Right heel and medial lower extremity ulcer Laterality: Right Type of Debridement: Excisional debridement Depth: Down to and including healthy tissue and in the subcutaneous layer Percentage of wound debrided: 100 Instrument Used: 5mm curette Tissue Removed: Slough and devitalized tissue Severity: Fat Layer Exposed Amount of bleeding with debridement: Mild Bleeding Controlled with: Pressure Patient tolerated procedure: Patient tolerated procedure well Post-Debridement Measurements and Additional Note: Post-Debridement Measurements/Treatment - Nurse 1 - General Ulcer Assessment Start: 08/22/21 13:34 Freq: Status: Active Protocol: SYVLIA.ElasteraTHONG Activity Type Activity Date Activity User E-Sign Co-Sign Detail Recorded Client Recorded Date Recorded By Document 08/22/21 13:34 PA [id number] 08/22/21 13:55 AK Document 08/29/21 13:41 PA [id number] 08/29/21 13:48 AK 08/22/21 08/29/21 13:34 13:41 - Today's Visit Information Type of service Initial Visit Follow-up Visit (Physician/TYPING SECRETARY ) Arrival Mode Ambulatory Ambulatory Patient Identification Verified (Name & Yes Yes ) Patient Requires Transmission-Based No No Precautions Safety Precautions NA NA Height and Weight Height 5 ft 8 in Weight 110 lb Weight in Pounds 110.0 lbs Body Mass Index (BMI) 16.7 16.7 BMI Classification Underweight Underweight BSA - Mckenzie 1.59 Vital Signs Temperature (97.8 F-99.1 F) 96.3 F L 96.9 F L Temperature Source Temporal Temporal Pulse Rate (60-100) 68 77 Pulse Location Monitor Monitor Blood Pressure (90/60-120/80) 104/83 H 111/66 Blood Pressure Mean (mm Hg) 90 81 Source Monitor Monitor Have you changed medications since your No last visit? Any new allergies or adverse reactions No Had a fall/change in ADL's that may No increase risk of falls Signs or symptoms of abuse and/or No neglect since last visit Have you been in the hospital since your No last visit? Has dressing in place as prescribed Yes Has compression in place as prescribed N/A Has offloadiing in place as prescribed N/A Experienced any changes in pain level or No management History Since Last Visit- (Skip if this is Patient's initial visit) Left Footwear Regular Shoe Regular Shoe Right Footwear Regular Shoe Surgical Shoe with pressure relief insole Pain Scale: 0-10 Numeric Is Patient Pain Free? Yes Yes WC - Nurse 1 - General Ulcer Measurement Start: 08/22/21 13:34 Freq: Status: Active Protocol: Activity Type Activity Date Activity User E-Sign Co-Sign Detail Recorded Client Recorded Date Recorded By Document 08/22/21 13:34 PA [id number] 08/22/21 13:55 AK Document 08/29/21 13:41 PA [id number] 08/29/21 13:48 AK 08/22/21 08/29/21 13:34 13:41 Wound Center Nurse 1 #4 L 2nd digit -Combined with other wound No No -Current Size (cm) - Length 1.9 0.5 -Current Size (cm) - Width 1.5 2 -Current Size (cm) - Depth 0.1 0.1 -Total Square Cm 2.85 1.0 -Date of Last Picture (Recall this 08/22/21 field) -Photo Taken Yes No -Tunneling No No -Undermining/Tunneling No No -Circular Undermining No No -Exudate Amt None Present None Present -Wound Margin Distinct, Distinct, Outline Outline Attached Attached -Granulation Amt None Present (0 None Present (0 %) %) -Granulation Quality N/A -Slough/Fibrin Yes No -Necrosis Amt Large (67-100%) Large (67-100%) -Necrotic Tissue Type Eschar Eschar -Structure Exposed N/A N/A -Texture (Nanci-wound Skin Appearance) Assessed,Callus No Abnormality -Moisture (Nanci-wound Skin Appearance) Assessed,Dry/ Dry/Scaly Scaly -Color (Nanci-wound Skin Appearance) Assessed No Abnormality -Temperature (Nanci-wound Skin No Abnormality No Abnormality Appearance) (Pt Warm) (Pt Warm) -Tenderness on Palpation (Nanci-wound Yes No Skin Appearance) -Ulcer Cleansing Rinsed/ Soap and Water Irrigated with Saline -Foul Odor after Cleansing No No -Anesthetic Used 5% Lidocaine 4% Lidocaine Gel Solution #3 R med campbell -Combined with other wound No No -Current Size (cm) - Length 0.6 1.5 -Current Size (cm) - Width 0.9 1.5 -Current Size (cm) - Depth 0.1 0.1 -Total Square Cm 0.54 2.25 -Date of Last Picture (Recall this 08/22/21 field) -Photo Taken Yes No -Epithelialization None Present None Present -Tunneling No No -Undermining/Tunneling No No -Circular Undermining No No -Exudate Amt None Present Small -Exudate Type Serosanguineous -Wound Margin Distinct, Distinct, Outline Outline Attached Attached -Granulation Amt None Present (0 %) -Granulation Quality N/A N/A -Slough/Fibrin Yes No -Necrosis Amt Large (67-100%) Medium (34-66%) -Necrotic Tissue Type Eschar Eschar -Structure Exposed N/A N/A -Texture (Nanci-wound Skin Appearance) No Abnormality, No Abnormality, Assessed Assessed -Moisture (Nanci-wound Skin Appearance) No Abnormality, No Abnormality, Assessed Assessed -Color (Nanci-wound Skin Appearance) No Abnormality, No Abnormality, Assessed Assessed -Temperature (Nanci-wound Skin No Abnormality No Abnormality Appearance) (Pt Warm) (Pt Warm) -Tenderness on Palpation (Nanci-wound No No Skin Appearance) -Ulcer Cleansing Rinsed/ Soap and Water Irrigated with Saline -Foul Odor after Cleansing No No -Anesthetic Used 4% Lidocaine 4% Lidocaine Solution Solution #2 R heel cluster -Combined with other wound No No -Current Size (cm) - Length 4.4 1.5 -Current Size (cm) - Width 1.1 4 -Current Size (cm) - Depth 0.2 0.3 -Total Square Cm 4.84 6.0 -Date of Last Picture (Recall this 08/22/21 field) -Photo Taken Yes No -Epithelialization Small 1-33% -Tunneling No No -Undermining/Tunneling No No -Circular Undermining No No -Change in Wound Grade/Stage No -Exudate Amt Medium Medium -Exudate Type Serosanguineous Serosanguineous -Wound Margin Distinct, Distinct, Outline Outline Attached Attached -Granulation Amt Small (1-33%) Small (1-33%) -Granulation Quality Pale,[place] Pale,[place] -Slough/Fibrin Yes Yes -Necrosis Amt Small (1-33%) Small (1-33%) -Necrotic Tissue Type Adherent Slough Adherent Slough -Structure Exposed N/A N/A -Texture (Nanci-wound Skin Appearance) Assessed,Callus Assessed,Callus -Moisture (Nanci-wound Skin Appearance) No Abnormality, No Abnormality, Assessed Assessed -Color (Nanci-wound Skin Appearance) No Abnormality, No Abnormality, Assessed Assessed -Temperature (Nanci-wound Skin No Abnormality No Abnormality Appearance) (Pt Warm) (Pt Warm) -Tenderness on Palpation (Nanci-wound No No Skin Appearance) -Ulcer Cleansing Rinsed/ Soap and Water Irrigated with Saline -Foul Odor after Cleansing No No -Anesthetic Used 4% Lidocaine 4% Lidocaine Solution Solution #1 R 4th toe -Combined with other wound No No -Current Size (cm) - Length 1.3 1.5 -Current Size (cm) - Width 1.9 2 -Current Size (cm) - Depth 0.1 0.2 -Total Square Cm 2.47 3.0 -Date of Last Picture (Recall this 08/22/21 field) -Photo Taken Yes No -Epithelialization None Present -Tunneling No No -Undermining/Tunneling No No -Circular Undermining No No -Change in Wound Grade/Stage No No -Exudate Amt Medium None Present -Exudate Type Serosanguineous -Granulation Amt None Present (0 %) -Granulation Quality N/A N/A -Slough/Fibrin No -Necrosis Amt Large (67-100%) Large (67-100%) -Necrotic Tissue Type Eschar -Structure Exposed N/A N/A -Texture (Nanci-wound Skin Appearance) Assessed, Assessed, Excoriation Crepitus -Moisture (Nanci-wound Skin Appearance) Assessed,Dry/ No Abnormality, Scaly Assessed -Color (Nanci-wound Skin Appearance) No Abnormality, No Abnormality, Assessed Assessed -Temperature (Nanci-wound Skin No Abnormality No Abnormality Appearance) (Pt Warm) (Pt Warm) -Tenderness on Palpation (Nanci-wound No No Skin Appearance) -Ulcer Cleansing Rinsed/ Soap and Water Irrigated with Saline -Foul Odor after Cleansing No No -Anesthetic Used 5% Lidocaine 4% Lidocaine Gel Solution WC - Nurse 2 - General Ulcer CM Notes Start: 08/22/21 13:34 Freq: Status: Active Protocol: Activity Type Activity Date Activity User E-Sign Co-Sign Detail Recorded Client Recorded Date Recorded By Document 08/22/21 14:12 MW [id number] 08/22/21 14:29 MW Document 08/29/21 14:30 MW [id number] 08/29/21 14:35 MW 08/22/21 08/29/21 14:12 14:30 Wound Center Nurse 2 #4 L 2nd digit -Time 14:12 14:31 -Correct Patient Yes Yes -Correct Side, Site, Position Yes Yes -Correct Procedure Yes Yes -Procedure Performed No No -Tunneling No -Undermining/Tunneling No -Circular Undermining No -Wound/Ulcer Outcome Not Healed Not Healed -Ulcer Cleansing Rinsed/ Irrigated with Saline -Foul Odor after Cleansing No -Bioengineered Tissue No -Bleeding Controlled with NA #3 R med campbell -Time 14:16 14:31 -Correct Patient Yes Yes -Correct Side, Site, Position Yes Yes -Correct Procedure Yes Yes -Procedure Performed Yes Yes -Type of Procedure Debridement Debridement -Clinical Debridement Subcutaneous Subcutaneous -Tissue Removed Subcutaneous Subcutaneous -Post Debridement (cm) - Length 1.0 2.0 -Post Debridement (cm) - Width 0.8 2.0 -Post Debridement (cm) - Depth 0.2 0.1 -Total Square (Post) (cm) 0.80 4.00 -Area of Debridement (cm) - Length 1.0 2.0 -Area of Debridement (cm) - Width 0.8 2.0 -Total Square (Area) (cm) 0.80 4.00 -Tunneling No No -Undermining/Tunneling No No -Circular Undermining No No -Wound/Ulcer Outcome Not Healed Not Healed -Ulcer Cleansing Rinsed/ Rinsed/ Irrigated with Irrigated with Saline Saline -Foul Odor after Cleansing No No -Bioengineered Tissue No No -Bleeding Controlled with Pressure Pressure -Treatment Response Procedure Procedure Tolerated Well Tolerated Well -Offloading No No -Debridement - Subq, 1st 20sq cm Yes Yes #2 R heel cluster -Time 14:24 14:32 -Correct Patient Yes Yes -Correct Side, Site, Position Yes Yes -Correct Procedure Yes Yes -Procedure Performed Yes Yes -Type of Procedure Debridement Debridement -Clinical Debridement Subcutaneous Subcutaneous -Tissue Removed Subcutaneous Subcutaneous -Post Debridement (cm) - Length 1.5 1.2 -Post Debridement (cm) - Width 2.0 2.0 -Post Debridement (cm) - Depth 0.2 0.2 -Total Square (Post) (cm) 3.00 2.40 -Area of Debridement (cm) - Length 1.5 1.2 -Area of Debridement (cm) - Width 2.0 2.0 -Total Square (Area) (cm) 3.00 2.40 -Tunneling No No -Undermining/Tunneling No No -Circular Undermining No No -Wound/Ulcer Outcome Not Healed Not Healed -Ulcer Cleansing Rinsed/ Rinsed/ Irrigated with Irrigated with Saline Saline -Foul Odor after Cleansing No No -Bioengineered Tissue No No -Bleeding Controlled with Pressure Pressure -Treatment Response Procedure Procedure Tolerated Well Tolerated Well -Offloading No No -Debridement - Subq, 1st 20sq cm No No #1 R 4th toe -Time 14:24 14:33 -Correct Patient Yes Yes -Correct Side, Site, Position Yes Yes -Correct Procedure Yes Yes -Procedure Performed No No -Tunneling No -Undermining/Tunneling No -Circular Undermining No -Wound/Ulcer Outcome Not Healed Not Healed -Bleeding Controlled with NA Pain Scale: 0-10 Numeric Is Patient Pain Free? Yes Yes WC - Nurse 3 - General Ulcer D/C NN Start: 08/22/21 13:34 Freq: Status: Active Protocol: Activity Type Activity Date Activity User E-Sign Co-Sign Detail Recorded Client Recorded Date Recorded By Document 08/22/21 14:38 KR [id number] 08/22/21 14:39 KR Document 08/29/21 14:57 ML [id number] 08/29/21 14:59 ML 08/22/21 08/29/21 14:38 14:57 Wound Care Nurse 3 #4 L 2nd digit -Ulcer Cleansing Rinsed/ Irrigated with Saline -Other Dressing betadine betadine -Primary Dressing Covered/Secured with Dry Gauze, Dry Gauze, Secured with Secured with Tape Tape #3 R med campbell -Ulcer Cleansing Rinsed/ Rinsed/ Irrigated with Irrigated with Saline Saline -Foul Odor after Cleansing No -Primary Dressing Applied Silvercel Silvercel -Primary Dressing Covered/Secured with Dry Gauze, Dry Gauze & Secured with Roll Gauze, Tape Secured with Tape -Silvercel 1 1 #2 R heel cluster -Ulcer Cleansing Rinsed/ Irrigated with Saline -Primary Dressing Applied Silvercel -Primary Dressing Covered/Secured with Dry Gauze, Dry Gauze & Secured with Roll Gauze, Tape Secured with Tape -Silvercel 0 #1 R 4th toe -Ulcer Cleansing Rinsed/ Rinsed/ Irrigated with Irrigated with Saline Saline -Foul Odor after Cleansing No -Other Dressing betadine betadine -Primary Dressing Covered/Secured with Dry Gauze, Dry Gauze, Secured with Secured with Tape Tape Pain Scale: 0-10 Numeric Is Patient Pain Free? Yes Yes WC - Visit Discharge Discharge Condition Stable Ambulatory Status Ambulatory Transportation Private Auto Assessment/Plan Assessment/Plan (1) Osteomyelitis of finger of left hand: CODE(S): M86.9 - Osteomyelitis, unspecified (2) Osteomyelitis of finger of right hand: CODE(S): M86.9 - Osteomyelitis, unspecified (3) Dry gangrene: CODE(S): I96 - Gangrene, not elsewhere classified (4) Chronic toe ulcer: CODE(S): L97.509 - Non-pressure chronic ulcer of other part of unspecified foot with unspecified severity (5) Ulcer of right lower extremity: CODE(S): L97.919 - Non-pressure chronic ulcer of unspecified part of right lower leg with unspecified severity (6) PAD (peripheral artery disease): CODE(S): I73.9 - Peripheral vascular disease, unspecified (7) Smoker: CODE(S): F17.200 - Nicotine dependence, unspecified, uncomplicated (8) Noncompliance: CODE(S): Z91.19 - Patient's noncompliance with other medical treatment and regimen PLAN: Debridement performed today in clinic as annotated above. Silver cell applied to the right medial lower extremity ulcer and right heel ulcer, iodine and dry gauze to the dry gangrenous areas. At home wound-care instructions: See above, Change dressing once daily or more frequently as needed due to contamination. Wash wounds daily with antibacterial soap and water, rinse and dry thoroughly before each dressing change. Compression: Single-layer Tubigrip's Off-loading: The patient was instructed to avoid pressure and friction on the affected areas. Reposition every 2 hours at minimum. Avoid prolonged standing a nd/or dangling of legs. When seated, feet should be elevated at chest level. Frequent ambulation is encouraged. Diet: Patient encouraged to increase protein intake while taking caution to avoid high carbohydrate and/or sugar intake. Smoking: The risks of smoking and benefits of smoking cessation were discussed with the patient today. The patient is encouraged to quit smoking. If smoking cessation aids are desired, the patient should contact their primary care provider to discuss appropriate options. Labs/cultures/imaging: Cultures ordered and collected prior and showed staph, patient never picked up his doxycycline, educated patient on the importance of starting his antibiotic regimen. Routine baseline lab work requested from [facility]. Vascular studies requested from [facility]. General records from [facility] requested as well. X-rays were ordered of the right and left second digit which showed high clinical suspicion for osteomyelitis. Right fourth toe x-ray just showed soft tissue swelling no fracture. Given the suspicion for osteomyelitis the patient will have an urgent referral to [facility] orthopedic surgeon to consider bone biopsy and further evaluation and treatment. Discussed with patient in detail that if any signs symptoms of infection occur that he needs to go to the emergency department. Patient also referred to infectious disease as well. Follow-up: Return to clinic in 1 week for re-evaluation. Return sooner or report to the emergency room should symptoms worsen, or new symptoms arise.
== END 2021-09-07 23:59 | disposition home or self-care (01) ==
LOC: WC 13:30
PROVIDERS: PCP Family Medicine; Referring Provider Nurse Practitioner Family; Visit Provider Nurse Practitioner Family
DX: L97.512 Non-pressure chronic ulcer of other part of right foot with fat layer exposed (principal); L97.412 Non-pressure chronic ulcer of right heel and midfoot with fat layer exposed; M86.9 Osteomyelitis, unspecified; I73.9 Peripheral vascular disease, unspecified; Z91.19 Patient's noncompliance with other medical treatment and regimen; F17.200 Nicotine dependence, unspecified, uncomplicated
CPT/HCPCS: 11042; 73140; 73660; 87070; 87075; 87077; 87186; 87205; 99213; G0463

== ENCOUNTER → 2022-10-02 | Outpatient (CLI) | payer MEDICAID, SELFPAY ==
--- NOTE | 2022-10-02 12:44 | ART_ITS ---
Reason For Study: PVD Procedure A bilateral lower extremity continuous wave Doppler with analog waveform analysis,segmental pressures,and ankle brachial indexes without exercise. Left Segmental Pressures Left brachial= 104mmHg. Left posterior tibial artery = 115mmHg. Left dorsalis pedis artery = 109mmHg. Left digit = 50 mmHg. The left posterior tibial artery waveforms are biphasic. The left dorsalis pedis waveforms are triphasic. Right Segmental Pressures Right brachial= 100mmHg. Right thigh = 116mmHg. Right calf = 101mmHg. Right posterior tibial artery = 61mmHg. Right dorsalis pedis artery = 55mmHg. Right digit = 53 mmHg. The right posterior tibial artery waveforms are monophasic. The right dorsalis pedis waveforms are biphasic. Indices The right ankle brachial index by the posterior tibial artery is 0.59. The right ankle brachial index by the dorsalis pedis is 0.53. The right digital-brachial index is 0.51. Did not complete exercise portion due to abnormal findings and trouble ambulating. The left ankle brachial index by the posterior tibial artery is 1.11. The left ankle brachial index by the dorsalis pedis is 1.05. The left digital-brachial index is 0.48. VL/Lower Ext Art Exam w/ Exercise Interpretation Summary Right posterior tibial and dorsalis pedis ankle-brachial indices are 0.59 and 0 .53 with monophasic and biphasic Doppler waveforms respectively consistent with moderately severe a rterial occlusive disease The right digital brachial index is abnormal at 0.51 Left lower extremity posterior tibial and dorsalis pedis ankle-brachial indices are 1.11 and 1.05 with biphasic and triphasic Doppler waveforms respectively which is normal The left digital brachial index is abnormal at 0.48 Ordering Physician: Drea Barriga Referring Physician: DREA BARRIGA DPM Performed By: Frank Grijalva RVT
== END | disposition home or self-care (01) ==
LOC: CVS 12:43
PROVIDERS: PCP Family Medicine; Referring Provider Podiatrist; Visit Provider Podiatrist
DX: I73.9 Peripheral vascular disease, unspecified (principal)
CPT/HCPCS: 93924

== ENCOUNTER → 2023-07-28 | Outpatient (CLI) | payer MEDICAID, SELFPAY ==
--- NOTE | 2023-07-28 12:38 | ECHOD_ITS ---
Reason For Study: Non-[facility] CMP Procedure This was a 2D Doppler, Color Flow transthoracic echocardiogram. Exam performed in department. Left Ventricle Normal LV size. The estimated ejection fraction is 30 %. Stage 1 diastolic dysfunction. There is moderate to severe global hypokinesis of the left ventricle. [place] : Akinetic. The rest of the wall segments are hypokinetic. Right Ventricle Normal RV size. ICD or pacer leads identified within the right ventricle. Normal systolic function. Atria Normal left atrium. Normal right atrium. Mitral Valve Normal mitral valve. Tricuspid Valve Normal tricuspid valve. Mild (1+) tricuspid valve insufficiency. Pulmonary artery systolic pressure is 34 mmHg. Aortic Valve Trisinus/trileaflet aortic valve. Pulmonic Valve Normal pulmonic valve. Great Vessels Normal aortic root. The pulmonary artery is normal size. Inferior vena cava collapse with respiration. Pericardium/Pleural No pericardial effusion. MMode/2D Measurements & Calculations LVIDd: 5.1 cm IVSd: 1.3 cm Ao root diam: 3.7 cm LVIDs: 4.4 cm LVPWd: 1.1 cm RVDd: 3.6 cm FS: 14.6 % LAV(MOD-sp4): 30.6 ml LVAd ap4: 42.8 cm2 LVAd ap2: 36.6 cm2 LVLd ap4: 10.3 cm LVLd ap2: 9.4 cm EDV(MOD-sp4): 145.3 ml EDV(MOD-sp2): 122.6 ml EDV(sp4-el): 151.6 ml EDV(sp2-el): 120.8 ml LVAs ap4: 35.2 cm2 LVAs ap2: 28.6 cm2 LVLs ap4: 9.9 cm LVLs ap2: 9.2 cm ESV(MOD-sp4): 101.2 ml ESV(MOD-sp2): 74.5 ml ESV(sp4-el): 106.0 ml ESV(sp2-el): 76.0 ml EF(MOD-sp4): 30.4 % EF(MOD-sp2): 39.2 % EF(sp4-el): 30.1 % SV(MOD-sp4): 44.1 ml SV(MOD-sp2): 48.1 ml SV(sp4-el): 45.6 ml LA dimension(2D): 3.5 cm LA A4 area: 13.8 cm2 RA A4 area: 12.8 cm2 TAPSE: 1.3 cm Doppler Measurements & Calculations MV E max zachery: 30.3 cm/sec Lat Peak E' Zachery: 2.7 cm/sec Med Peak E' Zachery: 4.5 cm/sec MV A max zachery: 95.6 cm/sec E/E' lat: 11.2 E/E' med: 6.8 MV E/A: 0.32 Ao V2 max: 141.2 cm/sec LV V1 max: 84.5 cm/sec PA V2 max: 69.0 cm/sec Ao max P.0 mmHg LV V1 max P.9 mmHg TR max zachery: 282.3 cm/sec TR max P.9 mmHg ECHO/Echo Complete Interpretation Summary Normal LV size. The estimated ejection fraction is 30 %. There is moderate to severe global hypokinesis of the left ventricle. [place] : Akinetic. The rest of the wall segments are hypokinetic. Stage 1 diastolic dysfunction. Ordering Physician: Jonathan Zuñiga Referring Physician: Hood Ballesteros Performed By: Peyton Delgado RDCS
== END | disposition home or self-care (01) ==
LOC: CVS 12:36
PROVIDERS: PCP Family Medicine; Referring Provider Nurse Practitioner Family; Visit Provider Nurse Practitioner Family
DX: I42.8 Other cardiomyopathies (principal); I50.9 Heart failure, unspecified; Z95.810 Presence of automatic (implantable) cardiac defibrillator
CPT/HCPCS: 93306